=== PATIENT | female | born 1945 | race Caucasian/White ===

== ENCOUNTER → 2018-07-07 12:50 | Outpatient (POV) | payer MEDICARE, SELFPAY | PROVIDERS: Family Provider Family Medicine; PCP Family Medicine | DX: Z00.00 Encounter for general adult medical examination without abnormal findings (principal) ==

== ENCOUNTER → 2018-10-01 14:56 | Outpatient (CLI) | payer MEDICARE, SELFPAY ==
[2018-10-01 15:43] LABS: CKMB Relative Index 2.6 U/L (0-4.0); Creatine Kinase 182 U/L (26-192); Creatine Kinase MB 4.8 ng/ml (0.0-3.6); Troponin I < 0.02 ng/ml (0.00-0.06)
== END ==
PROVIDERS: Visit Provider Family Medicine
DX: R07.9 Chest pain, unspecified (principal)
CPT/HCPCS: 36415; 82550; 82553; 84484; 93005

== ENCOUNTER → 2018-10-08 10:37 | Outpatient (CLI) | payer MEDICARE, SELFPAY ==
--- NOTE | 2018-10-08 10:40 | MR_ITS ---
MR lumbar spine wo con, MR 3-d myelogram/MRCP HISTORY: Low back pain with bilateral leg pain and weakness ITS.REASON: LOW BACK PAIN ORDERING PHYSICIAN: Lalo Coburn MD PATIENT AGE: 73 years Comparison: 01/15/2017 TECHNIQUE: Standard multiplanar multiecho sequences are performed without contrast. 3-D MIP and myelographic images are also rendered and reviewed FINDINGS: There is slight reversal of the lumbar lordosis. The spinal cord ends at the L1 level. There is mild lumbar scoliosis convex left. L1-L2: Unremarkable. L2-L3: Mild degenerative disc disease with type I endplate changes anteriorly. L3-L4: Degenerative disc disease with minimal posterior endplate osteophytes. Mild facet and ligamentum flavum hypertrophy with mild right sided foraminal narrowing. L4-L5: Degenerative disc disease with bulging disc eccentric toward the right with right lateral bulging disc/osteophyte complex. There is moderate right-sided foraminal narrowing. L5-S1: Degenerative disc disease with facet and ligamentum hypertrophy. Left-sided facet hypertrophic changes are present along with a small left foraminal/lateral disc osteophyte complex causing moderate narrowing of the left foramen at L5-S1. No fracture or dislocation. No extruded herniated disc evident. IMPRESSION: 1. Lumbar spondylosis with scoliosis as detailed above. No disc herniation or canal stenosis 2. L3-L4: Degenerative disc disease with minimal posterior endplate osteophytes. Mild facet and ligamentum flavum hypertrophy with mild right sided foraminal narrowing. 3. L4-L5: Degenerative disc disease with bulging disc eccentric toward the right with right lateral bulging disc/osteophyte complex. There is moderate right-sided foraminal narrowing. 4. L5-S1: Degenerative disc disease with facet and ligamentum hypertrophy. Left-sided facet hypertrophic changes are present along with a small left foraminal/lateral disc osteophyte complex causing moderate narrowing of the left foramen at L5-S1.
== END ==
PROVIDERS: PCP Family Medicine; Visit Provider Family Medicine
DX: M54.5 Low back pain (principal); M51.36 Other intervertebral disc degeneration, lumbar region
CPT/HCPCS: 72148; 76376

== ENCOUNTER → 2019-01-12 13:26 | Outpatient (POV) | payer MEDICARE, SELFPAY | DX: Z00.00 Encounter for general adult medical examination without abnormal findings (principal) ==

== ENCOUNTER → 2019-04-11 08:59 | Outpatient (POV) | payer MEDICARE, SELFPAY ==
[2019-04-11 09:17] VITALS: BP 118/62; PULSE 84; RESP 18; O2SAT 99; BMI 17.8
--- NOTE | 2019-04-11 11:05 | HMH.PMCON ---
Assessment and Plan (1) Facet arthropathy, lumbar Current visit: Yes Status: Acute Category: Medical Code(s): M47.816 - Spondylosis without myelopathy or radiculopathy, lumbar region (2) Degenerative disc disease, lumbar Current visit: Yes Status: Acute Category: Medical Code(s): M51.36 - Other intervertebral disc degeneration, lumbar region - Assessment and plan all Dx Assessment and Plan for all problems:: We will schedule the patient for an epidural injection at L4-L5. The patient is not on any anticoagulation therapy. She will continue a home stretching program. We will also start her on diclofenac 75 mg p.o. 1 tablet needed. We will see her back after her procedure and reassess her symptoms at that time. She is been instructed to call the office if she has any concerns prior to her next appointment. Dr. Shultz has reviewed this note and agrees with this plan of care. This note was dictated using voice recognition software and may contain errors or omissions HPI - Data of Consult Patient: new to practice Requesting Physician: Neisha Huff APRN Primary Care Provider: Lalo Coburn MD - Consult Narrative Reason for consult: Low back pain History of present illness: Ms. Sinha is a 73 year old female who presents today for complaints of back pain. The patient denies any radiation of the pain. It is a dull ache, but to be sharper by the end of the day. She says this is been going on for years but the pain is progressively getting worse. She does state that the pain worsens with standing and walking, and is relieved with bending forward and sitting. Patient rates her pain a 6 out of 10 today. She has been referred by Dr. Coburn. She says that she is very cautious in any medications that she takes, and has been concerned about taken naproxen in the past due to being told that it can cause kidney problems. Result, she often tells providers that she has an allergy to naproxen. She denies any actual allergy. She has been exercising and says that she does have some relief with this. CC: Neisha Huff APRN [facility] History I have reviewed the patient's past medical history: Yes Medical History: Reports:: Diabetes Mellitus Type 2 *Have you ever received a pneumonia vaccine?: No *Have you received a flu vaccine this season?: No Other Surgeries: Yes: Cholecystectomy - *Social History Smoking Status: Never smoker Alcohol Intake: never *Occupational Status:: other Housing: house Household Members: other *Travel in the last 8 weeks: None - Psychiatric History Expresses thoughts of harming self/others: None Suicide Plan Description: No Plan Family Hx:: Unable to obtain Review of Systems - Review of Systems ROS General: no recent weight change, no fever, no sleep disturbances Respiratory: no cough, no shortness of air, no recurring pulmonary infections Cardiovascular/Peripheral Vascular: No chest pain, No palpitations, no edema, no shortness of breath. Gastrointestinal: no incontinence, normal bowel movements reported Genitourinary: no incontinence Musculoskeletal: Back pain Psychiatric: normal mood/ affect, Neurological: [denies weakness in extremities], [denies balance issues] Meds Home Medications Medication Instructions Recorded Confirmed Type Levothyroxine Sodium 100 mcg PO DAILY 04/11/19 04/11/19 History [Levothyroxine 100mcg (0.1MG) Tab] Metformin HCl [Fortamet] 500 mg PO BID 04/11/19 04/11/19 History Potassium 99 mg PO DAILY 04/11/19 04/11/19 History Simvastatin 40 mg PO DAILY 04/11/19 04/11/19 History Allergies Allergy/AdvReac Type Severity Reaction Status Date / Time naproxen [NAPROXEN] Allergy Unknown Unverified 10/06/17 14:24 Objective Vital signs: Pulse Resp BP Pulse Ox 84 18 118/62 99 04/11/19 09:17 04/11/19 09:17 04/11/19 09:17 04/11/19 09:17 Narrative: Physical Exam General: Alert and oriented x3, no acute
--- NOTE | 2019-04-11 11:09 | P.CONS_ITS ---
Assessment and Plan (1) Facet arthropathy, lumbar Current visit: Yes Status: Acute Category: Medical Code(s): M47.816 - Spondylosis without myelopathy or radiculopathy, lumbar region (2) Degenerative disc disease, lumbar Current visit: Yes Status: Acute Category: Medical Code(s): M51.36 - Other intervertebral disc degeneration, lumbar region - Assessment and plan all Dx Assessment and Plan for all problems:: We will schedule the patient for an epidural injection at L4-L5. The patient is not on any anticoagulation therapy. She will continue a home stretching program. We will also start her on diclofenac 75 mg p.o. 1 tablet needed. We will see her back after her procedure and reassess her symptoms at that time. She is been instructed to call the office if she has any concerns prior to her next appointment. Dr. Shultz has reviewed this note and agrees with this plan of care. This note was dictated using voice recognition software and may contain errors or omissions HPI - Data of Consult Patient: new to practice Requesting Physician: Neisha Huff APRN Primary Care Provider: Lalo Coburn MD - Consult Narrative Reason for consult: Low back pain History of present illness: Ms. Sinha is a 73 year old female who presents today for complaints of back pain. The patient denies any radiation of the pain. It is a dull ache, but to be sharper by the end of the day. She says this is been going on for years but the pain is progressively getting worse. She does state that the pain worsens with standing and walking, and is relieved with bending forward and sitting. Patient rates her pain a 6 out of 10 today. She has been referred by Dr. Coburn. She says that she is very cautious in any medications that she takes, and has been concerned about taken naproxen in the past due to being told that it can cause kidney problems. Result, she often tells providers that she has an allergy to naproxen. She denies any actual allergy. She has been exercising and says that she does have some relief with this. CC: Neisha Huff APRN [facility] History I have reviewed the patient's past medical history: Yes Medical History: Reports:: Diabetes Mellitus Type 2 *Have you ever received a pneumonia vaccine?: No *Have you received a flu vaccine this season?: No Other Surgeries: Yes: Cholecystectomy - *Social History Smoking Status: Never smoker Alcohol Intake: never *Occupational Status:: other Housing: house Household Members: other *Travel in the last 8 weeks: None - Psychiatric History Expresses thoughts of harming self/others: None Suicide Plan Description: No Plan Family Hx:: Unable to obtain Review of Systems - Review of Systems ROS General: no recent weight change, no fever, no sleep disturbances Respiratory: no cough, no shortness of air, no recurring pulmonary infections Cardiovascular/Peripheral Vascular: No chest pain, No palpitations, no edema, no shortness of breath. Gastrointestinal: no incontinence, normal bowel movements reported Genitourinary: no incontinence Musculoskeletal: Back pain Psychiatric: normal mood/ affect, Neurological: [denies weakness in extremities], [denies balance issues] Meds Home Medications Medication Instructions Recorded Confirmed Type Levothyroxine Sodium 100 mcg PO DAILY 04/11/19 04/11/19 History [Levothyroxine 100mcg (0.1MG) Tab] Metformin HCl [Fortamet] 500 mg PO BID 04/11/19 04/11/19 History Potassium
== END ==
PROVIDERS: PCP Family Medicine; Visit Provider Clinical Nurse Specialist Family Health
DX: M47.816 Spondylosis without myelopathy or radiculopathy, lumbar region (principal); M51.36 Other intervertebral disc degeneration, lumbar region
CPT/HCPCS: 99202

== ENCOUNTER → 2019-05-16 10:47 | Outpatient (POV) | payer MEDICARE, SELFPAY ==
[2019-05-16 10:54] VITALS: BP 123/60; PULSE 77; RESP 18; O2SAT 98; BMI 17.6
--- NOTE | 2019-05-16 13:06 | HMH.PAINSOAP ---
[facility] Pain Management SOAP Note Subjective:: She is a very pleasant 73-year-old white female who presents today for follow-up after lumbar epidural steroid injection. Patient had 3 weeks of complete pain relief. Her pain is starting to begin to come back now. She states that she has some lumbar muscle spasms. Patient has not tried any heat on this she is uninterested in any medications or physical therapy at this time 2. She did complete 6 weeks of physical therapy in which she stated that her pain got worse. Patient has started taking her diclofenac 75 mg 1 p.o. twice daily. She denies having any side effects to it. ROS General: no recent weight change, no fever, no sleep disturbances Respiratory: no cough, no shortness of air, no recurring pulmonary infections Cardiovascular/Peripheral Vascular: No chest pain, No palpitations, no edema, no shortness of breath. Gastrointestinal: no incontinence, normal bowel movements reported Genitourinary: no incontinence Musculoskeletal: Back pain, leg pain Psychiatric: normal mood/ affect Neurological: [denies weakness in extremities], [denies balance issues] Objective:: Physical Exam General: Alert and oriented x3, no acute distress, pleasant and cooperative, [on room air] Lungs: Resps E/U, Symmetrical chest expansion, Eyes: PERRL Musculoskeletal: Flexion and extension of lumbar spine somewhat guarded secondary to pain, deep tendon reflexes normal, strength in upper and lower extremities [5/5], [abnormal gait noted] Neurological: speech clear, art sales consultant equal, no gross sensory deficits Assessment:: Degenerative disc disease lumbar spine with lumbar radiculopathy Plan:: We will schedule repeat L4-L5 lumbar epidural steroid injection for the patient. She is not on any anticoagulation therapy. Patient has not utilize heat or ice for any of her pain symptoms however she is uninterested in any kind of oral medications or physical therapy. I discussed with her utilizing her heating pad 20 minutes a day twice a day for her low back muscle spasms. Follow-up with the patient after her injection reassess her symptoms at that time. Dr. Shultz has reviewed this note and agrees with this plan of care. This note was dictated using voice recognition software and may contain errors or omissions
== END ==
PROVIDERS: PCP Family Medicine; Visit Provider Clinical Nurse Specialist Family Health
DX: M51.16 Intervertebral disc disorders with radiculopathy, lumbar region (principal)
CPT/HCPCS: 99212

== ENCOUNTER → 2019-06-13 10:32 | Outpatient (POV) | payer MEDICARE, SELFPAY ==
[2019-06-13 11:11] VITALS: BP 131/54; PULSE 74; RESP 18; O2SAT 98; BMI 18.1
--- NOTE | 2019-06-13 11:37 | P.CONS_ITS ---
[facility] Pain Management SOAP Note Subjective:: Patient is a pleasant 73-year-old white female who presents today after second epidural steroid injection. Overall she states she is doing well she is also states she is doing well with her anti-inflammatories. Patient would like to have another injection when the weather becomes cooler. She does get about 80% relief of her symptoms. She does rate her pain a 7 out of 10 mostly her arthritic pain today. ROS General: no recent weight change, no fever, no sleep disturbances Respiratory: no cough, no shortness of air, no recurring pulmonary infections Cardiovascular/Peripheral Vascular: No chest pain, No palpitations, no edema, no shortness of breath. Gastrointestinal: no incontinence, normal bowel movements reported Genitourinary: no incontinence Musculoskeletal: Back pain Psychiatric: normal mood/ affect, [denies depression], [denies anxiety] Neurological: [denies weakness in extremities], [denies balance issues] Objective:: Physical Exam General: Alert and oriented x3, no acute distress, pleasant and cooperative, [on room air] Lungs: Resps E/U, Symmetrical chest expansion, Eyes: PERRL Musculoskeletal: Flexion and extension of lumbar spine somewhat guarded secondary to pain, deep tendon reflexes normal, strength in upper and lower extremities [5/5], [abnormal gait noted] Neurological: speech clear, carpet cleaner equal, no gross sensory deficits Assessment:: Degenerative disc disease lumbar spine with lumbar radiculopathy symptoms Plan:: Given the efficacy of the patient previous injections we will schedule a L4-L5 lumbar epidural steroid injection and July for the patient when the weather begins to turn cold. Patient is continuing her home stretching program. She is not on any anticoagulation therapy. I will follow-up with the patient after her injection reassess her symptoms at that time she is been instructed to call the office if she has any issues prior to her next appointment. Dr. Shultz has reviewed this note and agrees with this plan of care. This note was dictated using voice recognition software and may contain errors or omissions Pain Management Hx Components *Have you ever received a pneumonia vaccine?: Yes *Have you received a flu vaccine this season?: Yes - *Social History *Occupational Status:: other *Travel in the last 8 weeks: None
== END ==
PROVIDERS: PCP Family Medicine; Visit Provider Clinical Nurse Specialist Family Health
DX: M51.16 Intervertebral disc disorders with radiculopathy, lumbar region (principal)
CPT/HCPCS: 99212

== ENCOUNTER → 2019-07-13 11:30 | Outpatient (POV) | payer MEDICARE, SELFPAY | DX: Z00.00 Encounter for general adult medical examination without abnormal findings (principal) ==

== ENCOUNTER → 2019-07-18 13:22 | Outpatient (POV) | payer MEDICARE, SELFPAY | PROVIDERS: PCP Family Medicine; Visit Provider Nurse Practitioner Family | DX: Z00.00 Encounter for general adult medical examination without abnormal findings (principal) ==

== ENCOUNTER → 2020-04-25 12:26 | Outpatient (POV) | payer MEDICARE, SELFPAY | DX: Z00.00 Encounter for general adult medical examination without abnormal findings (principal) ==

== ENCOUNTER → 2020-05-21 07:55 | Outpatient (CLI) | payer MEDICARE, SELFPAY ==
[2020-05-21 09:19] LABS: Coronavirus 19 IgM Antibody Negative (Negative)
[2020-05-21 09:20] LABS: Coronavirus 19 IgG Antibody Positive (Negative)
== END ==
PROVIDERS: Visit Provider Surgery
DX: Z01.818 Encounter for other preprocedural examination (principal); Z12.11 Encounter for screening for malignant neoplasm of colon
CPT/HCPCS: 36415; 86328

== ENCOUNTER 2020-05-22 07:17 | Day surgery (SDC) | payer MEDICARE, SELFPAY ==
[2020-05-17 13:42] VITALS: BMI 16.9
[2020-05-22] VITALS (7 sets, daily range): BP systolic 83–150; BP diastolic 45–65; PULSE 59–71; RESP 16–18; TEMP 36.3–36.6; O2SAT 98–100
[2020-05-22 07:54] LABS: POC Glucose,Bedside 131 (70-110)
--- NOTE | 2020-05-22 08:34 | P.PN_ITS ---
[facility] Anesthesia Checklist - Patient Identification Patient Identification: Arm Band - Structural Data Admitted From: Home Planned Operative Procedure/s: colonoscopy Consent for Planned Operative Procedure(s) Verified: Yes Verified Documents: Surgical Consent, History and Physical - NPO Status Verified Time NPO: 00:00 - Additional verifications Anesthesia Reactions: No Hx Blood Transfusions: No Blood Transfusion Reaction: No - Airway Assessment C-Spine Mobility Assessed: Yes (mp2) TMJ Mobility Assessed: Yes Dentition: Poor Dentition - Neurological Assessment Level of Consciousness: Awake, Alert - Anesthesia Plan Anesthesia Risk discussed: Yes Anesthesia Plan: Verified ASA Class: III Anesthesia Type: MAC [facility] History I have reviewed the patient's past medical history: Yes Medical History: Reports:: Diabetes Mellitus Type 2, Gastroesophageal Reflux Disease(GERD), Hyperlipidemia Denies:: Cancer, Diabetes Mellitus Type 1, Internal Pacemaker, MRSA, Seizures *Have you ever received a pneumonia vaccine?: Yes *Have you received a flu vaccine this season?: Yes Other Medical History: Denies: Blood Transfusion Reaction Anesthesia experience/problems:: nac Other Surgeries: Yes: Cholecystectomy, Colonoscopy, EGD, Other. No: Pacemaker Amputation: No Fractures: No - *Social History Last grade of school completed: High school graduate Smoking Status: Never smoker Alcohol Intake: never Substance Use Type: denies use *Occupational Status:: retired Housing: house Household Members: family *Travel in the last 8 weeks: None Family Hx:: Coronary Artery Disease, Diabetes
--- NOTE | 2020-05-22 09:26 | HMH.SCOPE ---
- Procedure: Date: 05/22/20 Procedure Performed:: Total colonoscopy with polypectomy by biopsy forceps Indications:: Patient presents for follow-up colonoscopy. She is a 74-year-old white female who is well-known to me. I had previously seen her for some GI complaints characterized mostly by postprandial bloating and abdominal distention. Discussion was held about possible upper endoscopy as well as gastric emptying scan potential. Patient declined both of those investigations at that time. She was referred by Dr. Coburn for iron deficiency anemia and Hemoccult positive stool. Patient has refused gastroenterology referral in the past. She underwent upper endoscopy and colonoscopy as a work-up in December of this year. She had a rather poor colonic preparation, particularly the right colon, and I had advocated a follow-up colonoscopy in several months for complete evaluation. She did have a pedunculated polyp within the rectosigmoid which returned as tubular adenoma. Patient does state that she is planning cataract surgery as her vision has become quite symptomatic. Of note, the patient states that her sister is due for an upper endoscopy due to prior history of esophageal carcinoma. She wishes to perform this in June. Performing Provider:: Geronimo Rodriguez MD Referring Provider:: Lalo Coburn MD Sedation:: Propofol Procedure:: Patient was taken to endoscopy procedure room. She was positioned in a lateral decubitus position. Adequate intravenous sedation was achieved with titration of propofol. Variable stiffness Olympus colonoscope was inserted via the anus. With some difficulty due to profoundly floppy and atonic colon the colonoscope ultimately was advanced to the cecum. Colonic preparation was fair but adequate visualization was achieved with thorough irrigation and suctioning. Ileocecal valve and appendiceal orifice were clearly identified. In the periappendiceal location there is a small nodule which was removed with cold biopsy forceps and sent as polyp . This appeared to be likely a lymphoid nodule. Colonoscope withdrawn through the colon with careful surveillance. There were no other polyps or masses noted. Retroflexion within the rectum revealed internal hemorrhoids. Colonoscope was withdrawn. Findings:: Possible lymphoid nodule, biopsy, cecum Floppy colon Rare diverticuli Internal hemorrhoids Recommendations:: Repeat colonoscopy 5 years due to pedunculated polyp on colonoscopy done in December of this year. Source for iron deficiency anemia may be dietary Complications:: None immediately apparent Estimated blood obtained (mL): 2
== END 2020-05-22 10:09 | disposition home or self-care (01) ==
LOC: OUTP 07:18
PROVIDERS: PCP Family Medicine; Visit Provider Surgery
PROC: 0DJD8ZZ Inspection of Lower Intestinal Tract, Via Natural or Artificial Opening Endoscopic (ICD-10-PCS; CPT 45380; principal; 2020-05-22 08:30)
DX: Z12.11 Encounter for screening for malignant neoplasm of colon (principal); K63.5 Polyp of colon; K56.2 Volvulus; K57.30 Diverticulosis of large intestine without perforation or abscess without bleeding; K64.9 Unspecified hemorrhoids; Z80.0 Family history of malignant neoplasm of digestive organs; D50.9 Iron deficiency anemia, unspecified; E11.9 Type 2 diabetes mellitus without complications; K21.9 Gastro-esophageal reflux disease without esophagitis; E78.5 Hyperlipidemia, unspecified; Z90.49 Acquired absence of other specified parts of digestive tract; Z82.49 Family history of ischemic heart disease and other diseases of the circulatory system
CPT/HCPCS: 45380; 82962; 88305; J2704

== ENCOUNTER → 2020-06-11 08:25 | Outpatient (CLI) | payer MEDICARE, SELFPAY ==
--- NOTE | 2020-06-11 08:25 | FL_ITS ---
PROCEDURE: FL SMALL BOWEL FOLLOW THROUGH CLINICAL INDICATION: Anemia, positive occult blood COMPARISON: No exams were available for comparison FINDINGS: Fluoroscopy time: 32 seconds Small bowel has an unremarkable appearance. No mass obstructing lesion or mucosal abnormality is evident. Terminal ileum has an unremarkable appearance. Forge Utility Worker exam shows moderate levoscoliosis. Nonspecific pelvic calcifications are present. IMPRESSION: Unremarkable small bowel follow-through Dictated by: Elliott Quigley MD 06/11/2020 13:27 Elliott Quigley MD in [facility] 06/11/2020 13:27
== END ==
PROVIDERS: PCP Family Medicine; Visit Provider Surgery
DX: D64.9 Anemia, unspecified (principal)
CPT/HCPCS: 74250

== ENCOUNTER → 2020-08-13 08:45 | Outpatient (CLI) | payer MEDICARE, SELFPAY ==
[2020-08-13 11:54] LABS: Coronavirus 19 IgG Antibody Negative (Negative); Coronavirus 19 IgM Antibody Negative (Negative)
== END ==
PROVIDERS: Visit Provider Ophthalmology
DX: Z01.818 Encounter for other preprocedural examination (principal); H26.9 Unspecified cataract
CPT/HCPCS: 36415; 86328

== ENCOUNTER 2020-08-14 08:08 | Day surgery (SDC) | payer MEDICARE, SELFPAY ==
[2020-08-07 13:53] VITALS: BMI 17.3
--- NOTE | 2020-08-07 13:53 | SUR.PREOP ---
Instructed pt to go to Outpt lab on Thursday for COVID screening btwn 8-12
[2020-08-14 10:18] VITALS: BP 141/73; PULSE 75; RESP 18; TEMP 36.2; O2SAT 95
[2020-08-14 10:38] LABS: POC Glucose,Bedside 119 (70-110)
[2020-08-14 11:25] VITALS: BP 124/56; PULSE 71; RESP 18; O2SAT 100
[2020-08-14 11:30] VITALS: BP 126/58; PULSE 69; RESP 18; O2SAT 100
[2020-08-14 11:35] VITALS: BP 120/52; PULSE 67; RESP 16; O2SAT 100
[2020-08-14 11:40] VITALS: BP 115/58; PULSE 67; RESP 16; O2SAT 100
[2020-08-14 11:44] VITALS: BP 129/66; PULSE 71; RESP 18; TEMP 36.6; O2SAT 100
== END 2020-08-14 11:54 | disposition home or self-care (01) ==
LOC: OR 08:09
PROVIDERS: PCP Family Medicine; Visit Provider Ophthalmology
DX: H25.813 Combined forms of age-related cataract, bilateral (principal); H35.3132 Nonexudative age-related macular degeneration, bilateral, intermediate dry stage; E11.9 Type 2 diabetes mellitus without complications; Z79.84 Long term (current) use of oral hypoglycemic drugs; Z79.899 Other long term (current) drug therapy; Z80.9 Family history of malignant neoplasm, unspecified; M19.90 Unspecified osteoarthritis, unspecified site; K21.9 Gastro-esophageal reflux disease without esophagitis; E03.9 Hypothyroidism, unspecified; Z90.49 Acquired absence of other specified parts of digestive tract
CPT/HCPCS: 66984; 82962; V2632

== ENCOUNTER → 2020-08-27 10:54 | Outpatient (CLI) | payer MEDICARE, SELFPAY ==
[2020-08-27 13:53] LABS: Coronavirus 19 IgG Antibody Negative (Negative); Coronavirus 19 IgM Antibody Negative (Negative)
== END ==
PROVIDERS: Visit Provider Ophthalmology
DX: Z01.818 Encounter for other preprocedural examination (principal); Z98.41 Cataract extraction status, right eye
CPT/HCPCS: 36415; 86328

== ENCOUNTER 2020-08-28 08:40 | Day surgery (SDC) | payer MEDICARE, SELFPAY ==
[2020-08-21 15:13] VITALS: BMI 19.0
[2020-08-28 10:02] VITALS: BP 130/54; PULSE 80; RESP 16; TEMP 36.7; O2SAT 99
[2020-08-28 10:23] LABS: POC Glucose,Bedside 128 (70-110)
[2020-08-28 11:20] VITALS: BP 133/60; PULSE 69; RESP 16; O2SAT 100
[2020-08-28 11:25] VITALS: BP 118/58; PULSE 71; RESP 16; O2SAT 100
[2020-08-28 11:30] VITALS: BP 123/57; PULSE 68; RESP 16; O2SAT 100
[2020-08-28 11:35] VITALS: BP 136/48; PULSE 80; RESP 16; TEMP 36.2; O2SAT 99
== END 2020-08-28 11:50 | disposition home or self-care (01) ==
LOC: OR 08:41
PROVIDERS: PCP Family Medicine; Visit Provider Ophthalmology
DX: H25.813 Combined forms of age-related cataract, bilateral (principal); H35.3132 Nonexudative age-related macular degeneration, bilateral, intermediate dry stage; E11.9 Type 2 diabetes mellitus without complications; K21.9 Gastro-esophageal reflux disease without esophagitis; E03.9 Hypothyroidism, unspecified
CPT/HCPCS: 66984; 82962; V2632

== ENCOUNTER → 2021-01-30 11:19 | Outpatient (CLI) | payer MEDICARE, SELFPAY ==
[2021-01-30 12:49] LABS: Coronavirus 19 IgG Antibody Negative (Negative); Coronavirus 19 IgM Antibody Negative (Negative)
== END ==
PROVIDERS: Visit Provider Surgery
DX: Z01.812 Encounter for preprocedural laboratory examination (principal); Z11.52 Encounter for screening for COVID-19
CPT/HCPCS: 36415; 86328

== ENCOUNTER 2021-02-01 06:07 | Day surgery (SDC) | payer MEDICARE, SELFPAY ==
[2021-01-29 13:07] VITALS: BMI 16.9
[2021-02-01] VITALS (10 sets, daily range): BP systolic 112–139; BP diastolic 52–75; PULSE 70–79; RESP 12–20; TEMP 36.4–36.8; O2SAT 94–99
--- NOTE | 2021-02-01 06:52 | HMH.ANESCL ---
[facility] Anesthesia Checklist - Structural Data Admitted From: Home Planned Operative Procedure/s: excision neoplasm r flank Consent for Planned Operative Procedure(s) Verified: Yes - Additional verifications Anesthesia Reactions: No Hx Blood Transfusions: No Blood Transfusion Reaction: No - Airway Assessment C-Spine Mobility Assessed: Yes TMJ Mobility Assessed: Yes Dentition: Good Dentition - Neurological Assessment Level of Consciousness: Awake, Alert, Appropriate - Anesthesia Plan Anesthesia Risk discussed: Yes Anesthesia Plan: Verified ASA Class: II Anesthesia Type: General [facility] History I have reviewed the patient's past medical history: Yes Medical History: Reports:: Diabetes Mellitus Type 2, Gastroesophageal Reflux Disease(GERD), Hyperlipidemia Denies:: Cancer, Diabetes Mellitus Type 1, Internal Pacemaker, MRSA, Seizures *Have you ever received a pneumonia vaccine?: Yes *Have you received a flu vaccine this season?: Yes Other Medical History: Reports: Arthritis. Denies: Blood Transfusion Reaction Anesthesia experience/problems:: none Laterality Cases: Bilateral: Cataract Other Surgeries: Yes: Cholecystectomy, Colonoscopy, EGD, Other. No: Pacemaker Amputation: No Fractures: No - *Social History Last grade of school completed: High school graduate Smoking Status: Never smoker Alcohol Intake: never Substance Use Type: denies use *Occupational Status:: retired Housing: apartment Household Members: none *Travel in the last 8 weeks: None Family Hx:: Coronary Artery Disease, Diabetes
--- NOTE | 2021-02-01 08:09 | HMH.OPNOTE ---
Date of procedure: 02/01/21 Pre-op Diagnosis:: Infected sebaceous cyst right posterior lateral back Post-op Diagnosis:: Same Procedure performed:: Excision of sebaceous cyst (excisional length approximately 5 cm) with intermediate complexity partial closure. Surgeon:: Geronimo Rodriguez MD PLANT CULTURE MANAGER:: Luis Pagan Anesthesia: LMA Estimated blood loss (mL): 10 Clinical Note:: Patient is a 75-year-old female. I had seen her in the office over a week ago at which time she had what appeared to be an inflamed sebaceous cyst on the right posterior lateral back area. She was started on antibiotics. However this failed outpatient management and she developed some drainage consistent with abscess sebaceous cyst. Plan was made for excision of the underlying cyst with debridement and partial closure. Operative findings:: Consistent with ruptured inflamed abscess sebaceous cyst Operative note:: Patient was taken to the operating room. General anesthesia was induced via LMA. She was positioned in lateral position. The area was prepped and draped. Lesion was marked with a skin marker for planned elliptical excision of the somewhat ulcerated denuded skin where there was drainage. Incision was performed after injection of local anesthetic. Dissection was carried down to the cyst capsule. The overlying inflamed denuded skin was excised with the underlying cyst capsule using Metzenbaum dissection. It was sent off as specimen. Wound was irrigated. Hemostasis was achieved with electrocautery. Additional local anesthetic was infiltrated. Incision was closed with interrupted 3-0 nylon vertical mattress sutures leaving small central portion open which was packed with 1/4 inch plain packing gauze. Clean dry sterile dressing was applied. Condition: stable Disposition: PACU Specimens:: Sebaceous cyst Complications:: None immediately apparent
--- NOTE | 2021-02-01 08:11 | HMH.ANESI ---
[facility] Anesthesia Record Part I Intake, IV Amount: 500 Estimated blood loss (mL): 0 Urine output (mL): 0 Blood Pressure: 124/68 SaO2: 97 Pulse Rate: 70 Respiratory Rate: 12 Temperature: 98.2 F Patient is:: Awake, Stable Stable to PACU at:: 08:05
[2021-02-01 08:38] LABS: POC Glucose,Bedside 109 (70-110)
--- NOTE | 2021-02-01 13:37 | HMH.ANESII ---
[facility] Anesthesia Record Part II Discharge Time: 08:35 Destination: Surgical Day Care (OP Surgery) PACU nurse assessment reviewed?: Yes Patient Condition:: Good Anesthesia Complications:: None Swallowing reflex intact?: Yes Cyanosis?: No Blood Pressure: 125/63 Pulse Rate: 74 Temperature: 98 F Mental Status: Alert & Oriented Pain level:: 0 Nausea and/or vomitting:: None Intake, IV Amount: 0
[2021-02-01 15:54] LABS: POC Glucose,Bedside 120 (70-110)
== END 2021-02-01 09:06 | disposition home or self-care (01) ==
LOC: OR 06:08
PROVIDERS: PCP Family Medicine; Visit Provider Surgery
PROC: (CPT 21931; principal; 2021-02-01 07:30)
DX: L72.3 Sebaceous cyst (principal); E11.9 Type 2 diabetes mellitus without complications; K21.9 Gastro-esophageal reflux disease without esophagitis; E78.5 Hyperlipidemia, unspecified; Z90.49 Acquired absence of other specified parts of digestive tract; Z83.3 Family history of diabetes mellitus; Z82.49 Family history of ischemic heart disease and other diseases of the circulatory system; Z79.899 Other long term (current) drug therapy; Z79.84 Long term (current) use of oral hypoglycemic drugs
CPT/HCPCS: 21931; 82962; 88304; 96374; J2405

== ENCOUNTER 2021-02-02 08:43 | Outpatient (CLI) | payer MEDICARE, SELFPAY ==
[2021-02-02 08:50] VITALS: BP 133/70; PULSE 72; RESP 18; O2SAT 97
--- NOTE | 2021-02-02 09:30 | PC.NURSE ---
Incision is well approximated, 6 stitches with a small opening in between them, (3 stitches, opening, 3 stitches). Small strip of 1/4in nugauze removed from opening and replaced with the same. Small amount of sanguineous drainage. Covered with dry 4x4's and medipore tape. Pt tolerated well.
== END 2021-02-02 09:30 | disposition home or self-care (01) ==
LOC: INF 08:43
PROVIDERS: PCP Family Medicine; Visit Provider Surgery
DX: L72.3 Sebaceous cyst (principal); Z48.01 Encounter for change or removal of surgical wound dressing
CPT/HCPCS: G0463

== ENCOUNTER 2021-02-03 08:52 | Outpatient (CLI) | payer MEDICARE, SELFPAY ==
[2021-02-03 09:03] VITALS: BP 115/71; PULSE 67; RESP 19; TEMP 36.8; O2SAT 95
[2021-02-03 10:07] VITALS: BP 115/71; PULSE 75; RESP 19; TEMP 36.8; O2SAT 95
== END 2021-02-03 09:20 | disposition home or self-care (01) ==
LOC: INF 08:53
PROVIDERS: PCP Family Medicine; Visit Provider Surgery
DX: L72.3 Sebaceous cyst (principal); Z48.01 Encounter for change or removal of surgical wound dressing
CPT/HCPCS: G0463

== ENCOUNTER 2021-02-04 08:29 | Outpatient (CLI) | payer MEDICARE, SELFPAY ==
--- NOTE | 2021-02-04 14:08 | PC.NURSE ---
R back wound cleansed with NS/ packed with 1/4 nugauze, covered with dry 4x4's, secured with medipore tape. sutures to both side of area are intact with no problems noted/ packing to open area center of wound. Patient tolerated very well.
== END 2021-02-04 08:50 | disposition home or self-care (01) ==
LOC: INF 08:29
PROVIDERS: Visit Provider Surgery
DX: L72.3 Sebaceous cyst (principal); Z48.01 Encounter for change or removal of surgical wound dressing
CPT/HCPCS: G0463

== ENCOUNTER 2021-02-05 12:02 | Outpatient (CLI) | payer MEDICARE, SELFPAY | END 2021-02-05 12:25 | disposition home or self-care (01) | LOC: INF 12:02 | PROVIDERS: Visit Provider Surgery | DX: L72.3 Sebaceous cyst (principal); Z48.01 Encounter for change or removal of surgical wound dressing | CPT/HCPCS: G0463 ==

== ENCOUNTER 2021-02-06 10:08 | Outpatient (CLI) | payer MEDICARE, SELFPAY | END 2021-02-06 10:20 | disposition home or self-care (01) | LOC: INF 10:08 | PROVIDERS: Visit Provider Surgery | DX: L72.3 Sebaceous cyst (principal); Z48.01 Encounter for change or removal of surgical wound dressing | CPT/HCPCS: G0463 ==

== ENCOUNTER 2021-02-07 08:48 | Outpatient (CLI) | payer MEDICARE, SELFPAY | END 2021-02-07 09:00 | disposition home or self-care (01) | LOC: INF 08:48 | PROVIDERS: Visit Provider Surgery | DX: L72.3 Sebaceous cyst (principal); Z48.01 Encounter for change or removal of surgical wound dressing | CPT/HCPCS: G0463 ==

== ENCOUNTER 2021-02-08 08:54 | Outpatient (CLI) | payer MEDICARE, SELFPAY | END 2021-02-08 09:10 | disposition home or self-care (01) | LOC: INF 08:54 | PROVIDERS: Visit Provider Surgery | DX: L72.3 Sebaceous cyst (principal); Z48.01 Encounter for change or removal of surgical wound dressing | CPT/HCPCS: G0463 ==

== ENCOUNTER 2021-02-09 09:02 | Outpatient (CLI) | payer MEDICARE, SELFPAY ==
--- NOTE | 2021-02-09 16:32 | PC.NURSE ---
RT lower back incision dressing removed and replaced. Wound is packed with Nu-Gauze and covered with 4X4's/tape.
== END 2021-02-09 10:15 | disposition home or self-care (01) ==
LOC: INF 09:03
PROVIDERS: PCP Family Medicine; Visit Provider Surgery
DX: L72.3 Sebaceous cyst (principal); Z48.01 Encounter for change or removal of surgical wound dressing
CPT/HCPCS: G0463

== ENCOUNTER 2021-02-10 08:55 | Outpatient (CLI) | payer MEDICARE, SELFPAY ==
--- NOTE | 2021-02-10 09:50 | PC.WOUNDNOTE ---
Dressing changed at this time using aseptic technique. Wound located on lower R back. Sutures intact, packing removed, and wound flushed with 2 cc of sterile water. RN removed gloves and hand hygiene and sterile gloves applied. wound packed with sterile CURAD idoform. sterile 4x4's placed over incision and taped with medipore soft cloth tape. Patient tolerated well.
--- NOTE | 2021-02-10 11:52 | PC.NURSE ---
Dressing change completed by Osbaldo Alvarado RN
== END 2021-02-10 09:40 | disposition home or self-care (01) ==
LOC: INF 08:55
PROVIDERS: PCP Family Medicine; Visit Provider Surgery
DX: L72.3 Sebaceous cyst (principal); Z48.01 Encounter for change or removal of surgical wound dressing
CPT/HCPCS: G0463

== ENCOUNTER 2021-02-12 08:10 | Outpatient (CLI) | payer MEDICARE, SELFPAY | END 2021-02-12 08:20 | disposition home or self-care (01) | LOC: INF 08:10 | PROVIDERS: PCP Family Medicine; Visit Provider Surgery | DX: L72.3 Sebaceous cyst (principal); Z48.01 Encounter for change or removal of surgical wound dressing | CPT/HCPCS: G0463 ==

== ENCOUNTER 2021-02-13 10:57 | Outpatient (CLI) | payer MEDICARE, SELFPAY ==
[2021-02-13 11:07] VITALS: BP 124/60; PULSE 79; RESP 16; TEMP 36.4; O2SAT 98
== END 2021-02-13 11:15 | disposition home or self-care (01) ==
LOC: INF 11:18
PROVIDERS: Visit Provider Surgery
DX: L72.3 Sebaceous cyst (principal); Z48.01 Encounter for change or removal of surgical wound dressing
CPT/HCPCS: G0463

== ENCOUNTER 2021-02-14 08:34 | Outpatient (CLI) | payer MEDICARE, SELFPAY | END 2021-02-14 08:45 | disposition home or self-care (01) | LOC: INF 08:34 | PROVIDERS: Visit Provider Surgery | DX: L72.3 Sebaceous cyst (principal); Z48.01 Encounter for change or removal of surgical wound dressing | CPT/HCPCS: G0463 ==

== ENCOUNTER 2021-02-15 10:50 | Outpatient (CLI) | payer MEDICARE, SELFPAY | END 2021-02-15 11:06 | disposition home or self-care (01) | LOC: INF 11:02 | PROVIDERS: Visit Provider Surgery | DX: L72.3 Sebaceous cyst (principal); Z48.01 Encounter for change or removal of surgical wound dressing | CPT/HCPCS: G0463 ==

== ENCOUNTER 2021-02-16 08:17 | Outpatient (CLI) | payer MEDICARE, SELFPAY ==
[2021-02-16 08:30] VITALS: BP 123/48; PULSE 78
== END 2021-02-16 08:50 | disposition home or self-care (01) ==
LOC: INF 08:20
PROVIDERS: PCP Family Medicine; Visit Provider Surgery
DX: L72.3 Sebaceous cyst (principal); Z48.01 Encounter for change or removal of surgical wound dressing
CPT/HCPCS: G0463

== ENCOUNTER → 2021-02-17 08:19 | Outpatient (CLI) | payer MEDICARE, SELFPAY | PROVIDERS: PCP Family Medicine; Visit Provider Surgery | DX: L72.3 Sebaceous cyst (principal); Z48.01 Encounter for change or removal of surgical wound dressing | CPT/HCPCS: G0463 ==

== ENCOUNTER 2021-02-18 08:11 | Outpatient (CLI) | payer MEDICARE, SELFPAY | END 2021-02-18 08:20 | disposition home or self-care (01) | LOC: INF 08:11 | PROVIDERS: Visit Provider Surgery | DX: L72.3 Sebaceous cyst (principal); Z48.01 Encounter for change or removal of surgical wound dressing | CPT/HCPCS: G0463 ==

== ENCOUNTER 2021-02-19 12:06 | Outpatient (CLI) | payer MEDICARE, SELFPAY | END 2021-02-19 12:15 | disposition home or self-care (01) | LOC: INF 12:06 | PROVIDERS: Visit Provider Surgery | DX: L72.3 Sebaceous cyst (principal); Z48.01 Encounter for change or removal of surgical wound dressing | CPT/HCPCS: G0463 ==

== ENCOUNTER 2021-02-20 10:28 | Outpatient (CLI) | payer MEDICARE, SELFPAY | END 2021-02-20 10:45 | disposition home or self-care (01) | LOC: INF 10:28 | PROVIDERS: Visit Provider Surgery | DX: L72.3 Sebaceous cyst (principal); Z48.01 Encounter for change or removal of surgical wound dressing | CPT/HCPCS: G0463 ==

== ENCOUNTER 2021-02-21 08:13 | Outpatient (CLI) | payer MEDICARE, SELFPAY ==
--- NOTE | 2021-02-21 09:28 | PC.NURSE ---
steri strips intact to left and right of center wound area, dressing changed per order/see wound assessment intervention.
== END 2021-02-21 08:40 | disposition home or self-care (01) ==
LOC: INF 08:13
PROVIDERS: Visit Provider Surgery
DX: L72.3 Sebaceous cyst (principal); Z48.01 Encounter for change or removal of surgical wound dressing
CPT/HCPCS: G0463

== ENCOUNTER → 2021-11-29 15:14 | Outpatient (CLI) | payer MEDICARE, SELFPAY | PROVIDERS: PCP Family Medicine; Visit Provider Nurse Practitioner | DX: U07.1 COVID-19 (principal) | CPT/HCPCS: C9803; U0003; U0005 ==

== ENCOUNTER → 2022-04-26 08:36 | Outpatient (CLI) | payer MEDICARE, SELFPAY | PROVIDERS: PCP Family Medicine; Visit Provider Ophthalmology | DX: Z01.812 Encounter for preprocedural laboratory examination (principal); Z20.822 Contact with and (suspected) exposure to COVID-19 | CPT/HCPCS: C9803; U0003; U0005 ==

== ENCOUNTER 2022-04-29 07:52 | Day surgery (SDC) | payer MEDICARE, SELFPAY ==
[2022-04-29 09:43] VITALS: BP 119/52; PULSE 76; RESP 20; TEMP 36.6; O2SAT 98; BMI 16.9
[2022-04-29 10:14] VITALS: BP 119/66; PULSE 76; RESP 20; TEMP 36.6; O2SAT 98
== END 2022-04-29 10:15 | disposition home or self-care (01) ==
LOC: OUTP 07:53
PROVIDERS: PCP Family Medicine; Visit Provider Ophthalmology
PROC: (CPT 66821; principal; 2022-04-29 09:00)
DX: Z48.810 Encounter for surgical aftercare following surgery on the sense organs (principal); H26.40 Unspecified secondary cataract; K21.9 Gastro-esophageal reflux disease without esophagitis; M19.90 Unspecified osteoarthritis, unspecified site; E11.9 Type 2 diabetes mellitus without complications; E03.9 Hypothyroidism, unspecified
CPT/HCPCS: 66821

== ENCOUNTER → 2022-06-17 13:40 | Outpatient (POV) | payer MEDICARE, SELFPAY | PROVIDERS: Visit Provider Dermatology | DX: Z00.00 Encounter for general adult medical examination without abnormal findings (principal) ==

== ENCOUNTER → 2022-07-08 13:42 | Outpatient (POV) | payer MEDICARE, SELFPAY | PROVIDERS: Visit Provider Dermatology | DX: Z00.00 Encounter for general adult medical examination without abnormal findings (principal) ==

== ENCOUNTER 2022-12-13 08:58 | Emergency (ER) | payer MEDICARE, SELFPAY ==
[2022-12-13 08:59] VITALS: BP 143/61; PULSE 76; RESP 17; TEMP 36.7; O2SAT 98; BMI 16.8
--- NOTE | 2022-12-13 09:11 | PC.NURSE ---
DR POLANCO AT BEDSIDE
--- NOTE | 2022-12-13 09:21 | XR_ITS ---
PROCEDURE INFORMATION: Exam: XR Right Shoulder Exam date and time: 12/13/2022 10:27 AM Age: 77 years old Clinical indication: Pain; Shoulder; Right; Additional info: Atraumatic R shoulder pain with abduction TECHNIQUE: Imaging protocol: Radiologic exam of the right shoulder. Views: 2 or more views. COMPARISON: No relevant prior studies available. FINDINGS: Bones/joints: Normal. Soft tissues: Normal. IMPRESSION: No acute findings.
[2022-12-13 09:30] VITALS: BP 130/68; PULSE 82; O2SAT 98
--- NOTE | 2022-12-13 09:30 | HMH.EDGENADL ---
Discharge Plan Disposition Patient Disposition: Home, Self-Care Condition: Good Prescriptions Prescriptions: New diclofenac sodium [Arthritis Pain (diclofenac)] 1 % gel 2 g topical QID Qty: 100 2RF Rx Instructions: apply to single elbow, wrist or hand; for hand includes palm/fingers/back of hand No Action omeprazole 40 mg capsule,delayed release(DR/EC) 40 mg PO DAILY ferrous sulfate 27 mg iron tablet 27 mg PO TID simvastatin 40 MG tablet 40 mg PO DAILY levothyroxine 100 MCG tablet 100 mcg PO DAILY potassium 99 MG tablet 99 mg PO DAILY metformin 500 MG tablet extended release 24hr 500 mg PO BID calcium carbonate-vitamin D3 500 MG tablet 500 mg PO DAILY eiqrndvt-jhz-iwlz-FA-lutein 1 EACH tablet 1 each PO DAILY Referrals Follow up/Referrals: Lalo Coburn MD [Primary Care Provider] - See instructions Anel Lantigua MD [Referring] - See instructions (Needs physical therapy for right biceps tendinitis and partial tear of long head of biceps tendon) Clinical Impressions Clinical Impression: Biceps tendinitis of right shoulder Discharge ED Provider: Yoel Regalado General Adult HPI General Chief complaint: Extremity Problem,Nontraumatic Stated complaint: right shoulder and arm pain, no accident Time Seen by Provider: 12/13/22 09:09 Mode of Arrival: Wheelchair Source of Information: Patient and Relative Limitations: No Limitations Description of Symptoms (Recalled from ER Triage Doc. by RN): RIGHT SHOULDER AND ARM PAIN WITHOUT INJURY FOR A FEW DAYS History of Present Illness HPI narrative: This is a 77-year-old female with history of type 2 diabetes presenting with right shoulder pain. Patient states she has had right shoulder pain on and off for months, but got acutely worse over the past 4 to 5 days. No inciting injury. She does not member what she was doing when it started. Since that time, it has started in the anterior aspect of her right shoulder and moved distally toward her elbow. Made worse with shoulder abduction as well as elbow flexion. She tried Tylenol with mild relief, but still has 10 out of 10 pain and she is worried she may have a fracture. Range of motion limited secondary to pain. Denies any trauma, bruising, previous injuries to the shoulder, numbness/weakness/tingling in the arm, elbow, or hand, neck or back pain, or any other concerns. Related Data Home Medications Medication Instructions Recorded Confirmed levothyroxine 100 mcg tablet 100 mcg PO DAILY THYROID 04/11/19 10/22/22 metformin 500 mg tablet,extended 500 mg PO BID Diabetes 04/11/19 10/22/22 release 24hr potassium 99 mg tablet 99 mg PO DAILY Supplement 04/11/19 10/22/22 simvastatin 40 mg tablet 40 mg PO DAILY Cholesterol 04/11/19 10/22/22 omeprazole 40 mg capsule,delayed 40 mg PO DAILY Supplement 07/28/19 10/22/22 release ferrous sulfate 27 mg iron tablet 27 mg PO TID Supplement 04/26/20 10/22/22 calcium carbonate 500 mg-vitamin 500 mg PO DAILY Supplement 05/17/20 10/22/22 D3 5 mcg (200 unit) tablet multivit with 1 each PO DAILY Supplement 08/07/20 10/22/22 iyhdwpur-vfwi-TD-lutein 8 mg iron-400 mcg-300 mcg tablet Previous Rx's Medication Instructions Recorded diclofenac sodium 1 % topical gel 2 g topical QID #100 grams 12/13/22 (Arthritis Pain (diclofenac)) Allergies Allergy/AdvReac Type Severity Reaction Status Date / Time No Known Allergies Allergy Verified 10/22/22 09:24 [facility] Disclaimer: The information contained in this section may have been updated after the patient was seen, as this information can be updated by other users. Social History Smoking Status: Never smoker second hand exposure: No alcohol intake: never substance use type: denies use current occupational status: retired Travel in the last 8 weeks: None household members: family housin
--- NOTE | 2022-12-13 09:35 | PC.NURSE ---
Rounded on patient; patient waiting for radiology exam. Sister at BS. call light within reach, no other needs at this time
[2022-12-13 10:00] VITALS: BP 112/61; PULSE 69; RESP 15; O2SAT 97
--- NOTE | 2022-12-13 10:26 | PC.NURSE ---
PT UPDATED ON POC, NO NEEDS AT THIS TIME
--- NOTE | 2022-12-13 10:34 | PC.NURSE ---
PT TO XR AT THIS TIME
--- NOTE | 2022-12-13 10:42 | PC.NURSE ---
PT RETURNED FROM XR
--- NOTE | 2022-12-13 10:43 | PC.NURSE ---
pt return from xray
[2022-12-13 11:00] VITALS: BP 130/67; PULSE 69; O2SAT 100
--- NOTE | 2022-12-13 11:20 | PC.NURSE ---
DR POLANCO AT BEDSIDE TO UPDATE PT ON POC
[2022-12-13 11:30] VITALS: BP 130/67; PULSE 69; RESP 17; TEMP 36.7; O2SAT 100
== END 2022-12-13 11:30 | disposition home or self-care (01) ==
PROVIDERS: Emergency Provider Emergency Medicine; PCP Family Medicine
DX: M75.21 Bicipital tendinitis, right shoulder (principal)
CPT/HCPCS: 73030; 99283; 99284

== ENCOUNTER 2023-01-28 11:00 | Outpatient (RCR) | payer MEDICARE, SELFPAY ==
--- NOTE | 2022-12-24 10:29 | HMH.OTOPEV ---
OT Inpatient Evaluation Rehab OT Outpatient Eval Start: 12/24/22 10:14 Freq: Status: Active Protocol: Document 12/24/22 10:14 [email or web address] (Rec: 12/24/22 10:29 [facility] [id number]) E-signed By Frankie Luna, OT Outpatient Therapy Subjective History Subjective History Pt is a 77 year old female who is seen this date for OT evaluation due to pain and stiffness in R shoulder. Pt does not recall an injury to the R shoulder that caused the pain. Pt reports that she went to the ER ~ 1 week ago due to R shoulder pain. Pt complains of difficulty completing daily tasks. Pt is R hand dominant. She has a medical history of diabetes. Pt would benefit from skilled OT to address decreased AROM, increased pain, and decreased endurance. Chief Complaint Pain,Stiff Symptom Type Ache,Throb,Sharp Symptoms Relieved By Rest/Positioning Symptoms Aggravated By Lifting Prior Functional Limitations None Current Functional Limitations Reaching,Lifting,Housework, Dressing,Driving,Sleeping, Recreation Activity Symptom Description Intermittent,Activity Dependent Level of pain today (0-10) 8 Pain scale - at its best (0-10) 7 Pain scale - at its worst (0-10) 10 Shoulder/Elbow Eval Shoulder Objective Measurements Shoulder ROM Right Shoulder ROM Limitations Muscle Weakness,Pain Shoulder Abduction Active Range of 108 Motion (degrees) Shoulder Flexion Active Range of Motion 109 (degrees) Query Text: Shoulder External Rotation Active Range 80 of Motion (degrees) Shoulder Internal Rotation Active Range 41 of Motion (degrees) pain with active ROM shoulder exam right standard pain with passive ROM shoulder exam right standard decreased ROM shoulder exam standard right Shoulder MMT Shoulder Abduction Strength Grade 3 Fair Shoulder Flexion Strength Grade 3 Fair Shoulder External Rotation Strength 3 Fair Grade Shoulder Internal Rotation Strength 3 Fair Grade Shoulder Strength Patient Testing Sitting Position Shoulder Special Tests
== END 2023-01-28 11:52 | disposition home or self-care (01) ==
LOC: OT 11:00
PROVIDERS: PCP Family Medicine; Visit Provider Family Medicine
DX: M25.511 Pain in right shoulder (principal); M75.81 Other shoulder lesions, right shoulder
CPT/HCPCS: 97010; 97014; 97110; 97140; 97166; 97530; G0283

== ENCOUNTER 2024-07-09 12:39 | Emergency (ER) | payer MEDICARE, SELFPAY ==
[2024-07-09 12:41] VITALS: BP 126/66; PULSE 85; RESP 16; TEMP 36.6; O2SAT 98; BMI 18.1
--- NOTE | 2024-07-09 13:10 | PC.NURSE ---
Gave pt an ice pack
--- NOTE | 2024-07-09 13:20 | ED_ITS ---
Discharge Plan Disposition Patient Disposition: Home, Self-Care Prescriptions Prescriptions: No Action omeprazole 40 mg capsule,delayed release(DR/EC) 40 mg PO DAILY ferrous sulfate 27 mg iron tablet 27 mg PO TID simvastatin 40 MG tablet 40 mg PO DAILY levothyroxine 100 MCG tablet 100 mcg PO DAILY potassium 99 MG tablet 99 mg PO DAILY metformin 500 MG tablet extended release 24hr 500 mg PO BID calcium carbonate-vitamin D3 500 MG tablet 500 mg PO DAILY hvxxmdci-fvw-etdc-FA-vit K-lut 1 EACH tablet 1 each PO DAILY diclofenac sodium [Arthritis Pain (diclofenac)] 1 % gel 2 g topical QID Qty: 100 2RF Rx Instructions: apply to single elbow, wrist or hand; for hand includes palm/fingers/back of hand Referrals Follow up/Referrals: Lalo Coburn MD [Primary Care Provider] - See instructions Activity Restrictions/Add. Instructions Additional Instructions/Restrictions: Apply ice pack to site of pain. Take Benadryl as needed. Please return the emerged part with any new, concerning, worsening symptoms. Clinical Impressions Clinical Impression: Hymenoptera sting Instructions Patient Instructions: DI for Insect Bites and Stings Print Language Print Language: Korean Discharge ED Provider: Todd Herrera General Adult HPI General Chief complaint: PAIN Stated complaint: bee sting to inner right upper arm Time Seen by Provider: 07/09/24 13:00 Mode of Arrival: Wheelchair Source of Information: Patient Limitations: No Limitations Description of Symptoms (Recalled from ER Triage Doc. by RN): bee sting to the r inner elbow. hurts History of Present Illness HPI narrative: This is a 78-year-old female who with a history of diabetes who presents after a yellowjacket sting to her right medial forearm. States that she was stung earlier today but is still having a sharp pain in the area. Is concerned the stinger is retained. Denies any rash, swelling, pruritus, throat swelling, difficulty breathing, abdominal pain, nausea/vomiting. Related Data Home Medications ?Medication ?Instructions ?Recorded ?Confirmed levothyroxine 100 mcg tablet 100 mcg PO DAILY THYROID 04/11/19 04/25/24 metformin 500 mg tablet,extended 500 mg PO BID Diabetes 04/11/19 04/25/24 release 24hr (osmotic) potassium 99 mg tablet 99 mg PO DAILY Supplement 04/11/19 04/25/24 simvastatin 40 mg tablet 40 mg PO DAILY Cholesterol 04/11/19 04/25/24 omeprazole 40 mg capsule,delayed 40 mg PO DAILY Supplement 07/28/19 04/25/24 release ferrous sulfate 27 mg iron tablet 27 mg PO TID Supplement 04/26/20 04/25/24 calcium carbonate 500 mg-vitamin 500 mg PO DAILY Supplement 05/17/20 04/25/24 D3 5 mcg (200 unit) tablet jkxqrojs-ltyv-ojqo 8 mg-folic 400 1 each PO DAILY Supplement 08/07/20 04/25/24 mcg-K 50 mcg-lutein 300 mcg tablet Previous Rx's ?Medication ?Instructions ?Recorded diclofenac sodium 1 % topical gel 2 g topical QID #100 grams 12/13/22 (Arthritis Pain (diclofenac)) Allergies Allergy/AdvReac Type Severity Reaction Status Date / Time No Known Allergies Allergy Verified 04/25/24 09:55 [facility] Disclaimer: The information contained in this section may have been updated after the patient was seen, as this information can be updated by other users. Social History Smoking Status: Never smoker second hand exposure: No alcohol intake: never substance use type: denies use current occupational status: retired Travel in the last 8 weeks: None household members: family housing: house current occupational exposures/hazards: No caffeine: Yes ROS Obtained: Yes All systems reviewed & no additional complaints except as documented Physical Exam General General appearance: alert and in no apparent distress Eye Eye exam: Present normal appearance, PERRL and EOMI Respiratory Respiratory exam: Present normal lung sounds bilaterally; Absent respiratory distress Cardiovascular Cardiovascular exam: Present regular rate and normal rhythm Abdominal Exam Abdominal exam: Present soft and distention; Absent tenderness, guarding or rebound Extremities Exam Extremities exam: Present normal inspection Neurological Exam Neurological exam: Present alert and oriented X3 Skin Skin exam: Present warm, dry and other (No rash, swelling, or stinger) Medical Decision Making Medical Records Medical records reviewed: Yes I reviewed the patient's medical records. Screening: Per USPSTF and CDC recommendations, given the prevalence of disease in our region, it is our hospital?s policy to screen for HIV and viral Hepatitis for all patients aged 18 and over and those with ongoing risk factors. Hammad Inquiry Pt receiving controlled substance: No Vital Signs: 07/09/24 12:41 07/09/24 13:25 Temperature 97.9 F 98.0 F Temperature Source Oral Oral Pulse Rate 80 Pulse Rate [Left] 85 Respiratory Rate 16 20 Blood Pressure 110/78 Blood Pressure [Left Arm] 126/66 Blood Pressure Mean [Left Arm] 86 02 Sat by Pulse Oximetry 98 Oxygen Delivery Method Room Air Room Air Orders (Tests/Meds): ORDERS Category Date Time Status HIV (1&2) Antibody Rapid Stat Lab 07/09/24 12:54 Ordered Hep C Ab with Reflex to RNA Stat Lab 07/09/24 12:54 Ordered Medical Decision Narrative: This is an 78-year-old female with a history of diabetes who presents with a yellowjacket sting to her right medial, proximal forearm. On arrival, patient is afebrile, hemodynamically stable, nontoxic-appearing. Differential diagnosis includes but is not limited to allergic reaction, anaphylaxis, hymenoptera sting. No evidence of allergic reaction or anaphylaxis. No stinger to remove. Patient was counseled on management at home with ice packs, Benadryl, and Tylenol/ibuprofen if needed for pain. Ultimately discharged in stable condition. No intervention needed. Critical Care Critical Care Time Critical Care Time: No
[2024-07-09 13:25] VITALS: BP 110/78; PULSE 80; RESP 20; TEMP 36.7; O2SAT 94
== END 2024-07-09 13:26 | disposition home or self-care (01) ==
PROVIDERS: Emergency Provider Student in an Organized Health Care Education/Training Program; PCP Family Medicine
DX: S50.861A Insect bite (nonvenomous) of right forearm, initial encounter (principal); E11.9 Type 2 diabetes mellitus without complications; W57.XXXA Bitten or stung by nonvenomous insect and other nonvenomous arthropods, initial encounter; Y92.9 Unspecified place or not applicable
CPT/HCPCS: 99282

== ENCOUNTER 2024-08-23 09:50 | Outpatient (POV) | payer MEDICARE, SELFPAY | END 2024-08-23 23:59 | disposition home or self-care (01) | LOC: SC 08-24 07:42 | PROVIDERS: Visit Provider Dermatology | DX: Z00.00 Encounter for general adult medical examination without abnormal findings (principal) ==

== ENCOUNTER 2025-08-16 10:49 | Outpatient (CLI) | payer MEDICARE, SELFPAY ==
--- OUTSIDE RECORDS SUMMARY | 2024-03-07 05:15 | XMS_ITS ---
Author Organization [facility] Address [address] [facility] [address] [place] [phone] Care Team Providers Care Wash Plant Operator Name Role Phone Canelo Coburnian Primary Care [...] 127 Performing Lab: Notes/Report: Test performed by [employer] [facility] , [address], [place] [address] Alek Osorio MD, Rolling Attendant CLIA: [id number] Sodium 137 135-145 mEq/L Potassium 4.1 3.5-5.3 [...] Interpretation:Normal Performing Lab: Notes/Report: Test performed by [employer] [address] [place] [address] , [place] [address] Alek Osorio MD, Rolling Attendant CLIA: [id number] Thyroxine Free (free T4) 1.54 0.86-1.76 ng/dL P-Iron Reviewed date:03/09/2024 10:28:30 AM Interpretation:Normal Performing Lab: Notes/Report: Test performed by [employer] [address] [place] [address] , [place] [address] Alek Osorio MD, Rolling Attendant CLIA: [id number] Iron 57 37-145 ug/dL P-TSH Reviewed date:03/09/2024 10:28:30 AM Interpretation:Normal Performing Lab: Notes/Report: Test performed by [employer] [address] [place] [address] , [facility] C, [place] [address] Alek Osorio MD, Rolling Attendant CLIA: [id number] TSH 3.50 0.43-5.25 mU/L REASON FOR VISIT [...] 03/07/2024 Encounters Encounter Location Date Provider Diagnosis [facility] [address] [facility] [address] [place], [place] [phone] 03/07/2024 Lalo Coburn Type 2 diabetes estrellita [...] Notes * ARSENIO CROCKER:1945 (80 yo F)Acc No.[id number]:03/07/2024 Progress Notes Patient: AYANNA BERMAN Provider: Cindy Coburn M.D. :1945 A ge:78 Y S ex:Female Date:03/07/2024 Address:[address] [place] [id number] Subjective: * Chief Complaints: * 1 . [...] G 2211 Complex e/[place], [address] GLUCOSE TEST, 96933 GLYCATED HEMOGLOBIN TEST, Modifiers: QW , 31897 CBC WITH AUTO DIFF * Follow Up: 6 Months * Images: Billing Information: * Visit Code: 60333 Office Visit, Est Pt., Level 4. * Procedure Codes: G2211 Complex e/[place]. [address] GLUCOSE TEST. 30404 GLYCATED HEMOGLOBIN TEST. Modifiers: QW 25166 CBC WITH AUTO DIFF. * Electronic signature of Susana Coburn MD on 08/17/2025 at 02:20 PM EDT Sign off status: Pending * Provider: Cindy Coburn M.D. Date: 0 03/07/2024 Generated for Yosef ng/Sunshineg/eTransmitting on: 1 02:20 PM EDT History and Physical Notes * HPI (History [...]
--- OUTSIDE RECORDS SUMMARY | 2024-06-09 05:30 | XMS_ITS ---
Author Organization [facility] Address [address] [facility] [address] [place] [phone] Care Team Providers Care Hot Cell Technician Name Role Phone Lalo Coburn Primary Care Provider [phone] Allergies Allergen (clinical drug ingredient) Drug/Non Drug [...] 06/09/2024 Encounters Encounter Location Date Provider Diagnosis [facility] [address] [place] [phone] 06/09/2024 Lalo Coburn Type 2 diabetes estrellita [...] Notes * AYANNA CROCKERDOB:1945 (80 yo F)Acc No.[id number]:06/09/2024 Progress Notes Patient: AYANNA BERMAN Provider: Cindy Coburn M.D. :1945 A ge:78 Y S ex:Female Date:06/09/2024 Address:[address] [place], [place] [address] Subjective: * Chief Complaints: * 1 [...] G 2211 Complex e/[place], [address] CAPILLARY BLOOD DRAW, 65210 GLUCOSE TEST, 67684 GLYCATED HEMOGLOBIN TEST, Modifiers: QW * Follow Up: a s scheduled,and prn * Images: Billing Information: * Visit Code: 61354 Office Visit, Est Pt., Level 3. * Procedure Codes: G2211 Complex e/[place]. [address] CAPILLARY BLOOD DRAW. 34891 GLUCOSE TEST. 77285 GLYCATED HEMOGLOBIN TEST. Modifiers: QW * Electronic signature of Susana Coburn MD on 08/17/2025 at 02:21 PM EDT Sign off status: Pending * Provider: Cindy Coburn M.D. Date: 0 06/09/2024 Generated for Yosef anderson/Alon/eTransmitting on: 1 02:21 PM EDT History and Physical Notes * [...]
--- OUTSIDE RECORDS SUMMARY | 2024-09-05 09:30 | XMS_ITS ---
Author Organization [facility] Address [address] [facility] [address] [place] [id number] Care Team Providers Care Rn Social Services Name Role Phone Lalo Coburn Primary Care [...] [address] [place] [id number] 09/05/2024 [place]illa [place] Other fatigue R53.83 and Snoring R06.83 Assessments [...] Notes * AYANNA CROCKERDOB:1945 (80 yo F)Acc No.[id number]:09/05/2024 Progress Notes Patient: AYANNA BERMAN Provider: Cindy Coburn M.D. :1945 A ge:79 Y S ex:Female Date:09/05/2024 Address:[address] [place], [place] [address] [address] [place], [id number] Subjective: * Chief Complaints: * 1 . [...] * Images: Billing Information: * Visit Code: 05454 Office Visit, Est Pt., Level 3. * Procedure Codes: G2211 Complex e/m visit add on. * Electronic signature of Susana Coburn MD on 08/17/2025 at 02:20 PM EDT Sign off status: Pending * Provider: Cindy Coburn M.D. Date: 11/05/2023 Generated for Yosef anderson/Alon/Aníbalitting on: 02:20 PM EDT History and Physical Notes [...]
--- OUTSIDE RECORDS SUMMARY | 2025-01-30 06:00 | XMS_ITS ---
Author Organization [facility] Address [address] [facility] [address] [place] [id number] Care Team Providers Care Fittings Tightener Name Role Phone Canelo Coburnian Primary Care [...] 100 Performing Lab: Notes/Report: Test performed by [facility] [address] [place] [address] , [address], [place] [address] Alek Osorio MD, Garage Door Service Technician CLIA: [id number] Sodium 136 135-145 mmol/L Potassium 4.9 3.5-5.3 [...] Normal Performing Lab: Notes/Report: Test performed by [facility] [address] [place] [address] , [place] [address] Alek Osorio MD, Garage Door Service Technician CLIA: [id number] Thyroxine Free (free T4) 1.66 0.86-1.76 ng/dL P-Hemoglobin A1C Reviewed date:02/01/2025 09:01:58 AM Interpretation:7.9 Performing Lab: Notes/Report: Test performed by [facility] [address] [place] [address] , [address], [place] [address] Alek Osorio MD, Garage Door Service Technician CLIA: [id number] Hemoglobin A1C 7.9 <5.7 % The following HbA1c ranges recommended by the [place] [employer] (ADA) may be used as an aid in the diagnosis of diabetes mellitus. HbA1c Suggested Diagnosis >=6.5% Diabetic 5.7% - 6.4% Pre-Diabetic <5.7% Non-Diabetic P-Iron Reviewed date:02/01/2025 09:01:58 AM Interpretation: Normal Performing Lab: Notes/Report: Test performed by [facility] [address] [place] [address] , [address], [place] [address] Alek Osorio MD, Garage Door Service Technician CLIA: [id number] Iron 63 37-145 ug/dL P-Lipid Panel Reviewed date:02/01/2025 09:01:59 AM Interpretation: Normal Performing Lab: Notes/Report: Test performed by [facility] [address] [place] [address] [address], [place] [address] Alek Osorio MD, Garage Door Service Technician CLIA: [id number] Cholesterol 177 <200 mg/dL Triglycerides 72 <150 [...] Normal Performing Lab: Notes/Report: Test performed by [facility] [address] [place], [place] [address] , [facility], [place] [address] Alek Osorio MD, Garage Door Service Technician CLIA: [id number] TSH 2.68 0.43-5.25 mU/L P-Microalbumin/Creatinine, R andom Urine Sample Reviewed date:02/01/2025 09:01:59 AM Interpretation:ablum/creat 54 Performing Lab: Notes/Report: Test performed by [facility] [address] [place] [address] , [address], [place] [address] Alek Osorio MD, Garage Door Service Technician CLIA: [id number] Albumin/Creatinine Ratio, Urine 54 0-30 ug/m g Microalbumin, Urine, Random 2.3 Creatinine, Urine 42.9 Estimated Average Glucose Reviewed date:02/01/2025 09:01:59 AM Interpretation:180 Performing Lab: Notes/Report: Test performed by [facility] [address] [place] [address] , [address], [place] [address] Alek Osorio MD, Garage Door Service Technician CLIA: [id number] Estimated Average Glucose (eAG) 180 Estimated Average [...] 01/30/2025 Encounters Encounter Location Date Provider Diagnosis [facility] [address] [place] [id number] 01/30/2025 Lalo Coburn Type 2 diabetes estrellita [...] Notes * AYANNA CROCKERDOB:1945 (80 yo F)Acc No.[id number]:01/30/2025 Progress Notes Patient: AYANNA BERMAN Provider: Cindy Coburn M.D. :1945 A ge:79 Y S ex:Female Date:01/30/2025 [facility] [address] [id number] Subjective: * Chief [...] anemia type - D50.9 5 . B WA < 18.5 - Z68.1 Plan: * Treatment: [...] stimated Average Glucose 180 - mg/dL * [facility], IT support 01/31/2025 06:20:07 : This order was created by the Interface. Bryanna Penn 02/01/2025 09:01:50 AM > See phone encounter * Procedure Codes: G 2211 Complex e/[place] [address] CBC WITH AUTO DIFF, 3051F HG A1C>EQUAL 7.0%<8.0%, G8752 MOST RECENT SYSTOLIC BP < 140MM HG, G8754 MOST RECENT DIASTOLIC BP < 90MM HG * Follow Up: 6 Months * Images: Billing Information: * Visit Code: 72367 Office Visit, Est Pt., Level 4. * Procedure Codes: G2211 Complex e/[place]. [address] CBC WITH AUTO DIFF. 3051F HG A1C>EQUAL 7.0%<8.0%. G8752 MOST RECENT SYSTOLIC BP < 140MM HG. G8754 MOST RECENT DIASTOLIC BP < 90MM HG. * Electronic signature of Susana Coburn MD on 08/17/2025 at 02:20 PM EDT Sign off status: Pending * Provider: Cindy Coburn M.D. Date: 0 01/30/2025 Generated for Michaellei ng/Fajimmyg/eTransmitting on: 1 02:20 PM EDT History and [...]
--- OUTSIDE RECORDS SUMMARY | 2025-01-30 06:45 | XMS_ITS ---
Author Organization [facility] Address [address] [facility] [address] [place] [phone] Care Team Providers Care Residential Plumber Name Role Phone Lalo Coburn Primary Care [...] Provider Diagnosis [facility] [address] [place] [phone] 01/30/2025 Lalo Coburn Plan Of Treatment No Information Progress Notes * AYANNA CROCKERDOB:1945 (80 yo F)Acc No.[id number]:01/30/2025 Progress Notes Patient: AYANNA BERMAN Provider: Cindy Coburn M.D. :1945 A ge:79 Y S ex:Female Date:01/30/2025 Address[facility] [id number] Subjective: * Chief Complaints: * 1 . [...] 0 01/30/2025 Generated for Yosef anderson/Alon/Brayan on: 1 02:20 PM EDT History and [...]
--- OUTSIDE RECORDS SUMMARY | 2025-08-02 06:00 | XMS_ITS ---
Author Organization [facility] Address [address] [place] [phone] Care Team Providers Care Buying Intern Name Role Phone Lalo Coburn Primary Care Provider REASON FOR VISIT 6 months Encounters Encounter Location Date Provider Diagnosis [facility] [address] [place] [phone] 08/02/2025 Lalo Coburn Plan Of Treatment No Information Progress Notes * AYANNA CROCKERDOB:1945 (80 yo F)Acc No.[id number]:08/02/2025 Progress Notes Patient: AYANNA BERMAN Provider: Cindy Coburn M.D. :1945 A ge:80 Y S ex:Female Date:08/02/2025 Address:[address] [place], [id number] Subjective: * Chief Complaints: * 1 . 6 months. * Medical History: Objective: * Vitals: Assessment: Plan: * Treatment: * Images: Billing Information: * Visit Code: * Procedure Codes: * Electronic signature of Susana Coburn MD on 08/17/2025 at 02:20 PM EDT Sign off status: Pending * Provider: Cindy Coburn M.D. Date: Generated for Yosef anderson/Alon/Brayan on: 02:20 PM EDT
[2025-08-16 13:19] LABS: Microscopic, Urine URINE MICROSCOPIC (MICROSCOPIC)
[2025-08-16 13:44] LABS: Hematocrit 38.4 % (37.0-47.0); Hemoglobin 12.8 g/dL (12.2-16.2); Immature Granulocytes % 0.1 %; Mean Corpuscular HGB Conc 33.3 g/dL (31.8-35.4); Mean Corpuscular Hemoglobin 30.7 pg (27.0-31.2); Mean Corpuscular Volume 92.1 fl (81-99); Nucleated Red Blood Cells % 0 %; Platelet Count 346 K/mm3 (142-424); Red Blood Count 4.17 M/mm3 (4.20-5.40); Red Cell Distribution Width-SD 43.5 fL; White Blood Count 7.2 K/mm3 (4.8-10.8)
[2025-08-16 14:12] LABS: Alanine Aminotransferase 24 U/L (12-78); Albumin Level 3.9 g/dl (3.5-5.0); Albumin/Globulin Ratio 1.0 (1.1-1.8); Alkaline Phosphatase 103 U/L (38-126); Anion Gap 12.2 mEq/L (5-15); Aspartate Amino Transferase 31 U/L (14-36); Bilirubin,Total 0.5 mg/dl (0.2-1.3); Blood Urea Nitrogen 13 mg/dl (7-17); Calcium 10.2 mg/dl (8.4-10.2); Carbon Dioxide 31 mmol/L (22.0-30.0); Chloride 90 mmol/L (98-107); Cholesterol 183 mg/dl (140-200); Creatinine,Serum 0.60 mg/dl (0.52-1.04); Estimated Glomerular Filt Rate 96 ml/min (>60); GFR (African American) 116 ML/MIN (>60); Globulin 3.8 g/dL (1.3-3.2); Glucose 112 mg/dl (74-100); HDL Cholesterol 84 mg/dl (40-60); Iron 90 ug/dL (37-170); Potassium 4.2 mmoL/L (3.5-5.1); Sodium 129 mmol/L (136-145); Total Protein,Serum 7.7 g/dl (6.3-8.2); Triglycerides 83 mg/dl (30-150)
[2025-08-16 14:24] LABS: Total Iron Binding Capacity 295 ug/dL (265-497)
[2025-08-16 14:33] LABS: 25-OH Vitamin D, Total 50.4 ng/mL (30-100); Free T4 (Free Thyroxine) 1.68 ng/dl (0.78-2.19)
[2025-08-16 14:46] LABS: Thyroid Stimulating Hormone 3.23 uIU/mL (0.465-4.68)
[2025-08-16 14:50] LABS: Ferritin 111 ng/ml (11.1-264)
[2025-08-16 15:04] LABS: Vitamin B12 437 pg/mL (239-931)
[2025-08-16 16:06] LABS: Bilirubin,Urine Negative (Negative); Color,Urine YELLOW (Yellow); Glucose,Urine (UA) Negative (Negative); Ketones,Urine Negative (Negative); Leukocyte Esterase,Urine Negative (Negative); PH,Urine 7.5 (5.0-8.5); Protein,Urine Negative (Negative); Specific Gravity, Urine 1.015 (1.005-1.030); Urobilinogen,Urine 0.2 EU/dl (0.2)
[2025-08-16 16:34] LABS: Hemoglobin A1C 7.2 % (4.0-6.0)
[2025-08-16 17:53] LABS: Amorphous Sediment,Urine 2+ /lpf; Mucus,Urine 3+ /lpf; WBC,Urine Occasional #/hpf (0-3)
[2025-08-16 17:54] LABS: Bacteria,Urine 1+ /lpf
--- OUTSIDE RECORDS SUMMARY | 2025-08-17 14:21 | XMS_ITS | Patient Health Record ---
Author [facility] [address] [facility] [address] [facility] [address] [place] [phone] Care Team Providers Care Coal Washer Name Role Phone Lalo Coburn Primary Care [...] 100 Performing Lab: Notes/Report: Test performed by [facility] [address] [place] [address] , [address], [place] [address] Alek Osorio MD, Material Expediter CLIA: [id number] Sodium 136 135-145 mmol/L Potassium 4.9 3.5-5.3 [...] Normal Performing Lab: Notes/Report: Test performed by [facility] [address] [place] [address] , [place] [address] Alek Osorio MD, Material Expediter CLIA: [id number] Thyroxine Free (free T4) 1.66 0.86-1.76 ng/dL P-Hemoglobin A1C Reviewed date:02/01/2025 09:01:58 AM Interpretation:7.9 Performing Lab: Notes/Report: Test performed by [facility] [address] [place] [address] , [facility] [address] Alek Osoroi MD, Material Expediter CLIA: [id number] Hemoglobin A1C 7.9 <5.7 % The following HbA1c ranges recommended by the [place] [employer] (ADA) may be used as an aid in the diagnosis of diabetes mellitus. HbA1c Suggested Diagnosis >=6.5% Diabetic 5.7% - 6.4% Pre-Diabetic <5.7% Non-Diabetic P-Iron Reviewed date:02/01/2025 09:01:58 AM Interpretation: Normal Performing Lab: Notes/Report: Test performed by [facility] [address] [place] [address] , [place] [address] Alek Osorio MD, Material Expediter CLIA: [id number] Iron 63 37-145 ug/dL P-Lipid Panel Reviewed date:02/01/2025 09:01:59 AM Interpretation: Normal Performing Lab: Notes/Report: Test performed by [facility] [address] [place] [address] [address], [place] [address] Alek Osorio MD, Material Expediter CLIA: [id number] Cholesterol 177 <200 mg/dL Triglycerides 72 <150 [...] Normal Performing Lab: Notes/Report: Test performed by [facility] [address] [place], [place] [address] [address] Alek Osorio MD, Material Expediter CLIA: [id number] TSH 2.68 0.43-5.25 mU/L P-Microalbumin/Creatinine, R andom Urine Sample Reviewed date:02/01/2025 09:01:59 AM Interpretation:ablum/creat 54 Performing Lab: Notes/Report: Test performed by [facility] [address] [place] [address] , [address], [place] [address] Alek Osorio MD, Material Expediter CLIA: [id number] Albumin/Creatinine Ratio, Urine 54 0-30 ug/m g Microalbumin, Urine, Random 2.3 Creatinine, Urine 42.9 Estimated Average Glucose Reviewed date:02/01/2025 09:01:59 AM Interpretation:180 Performing Lab: Notes/Report: Test performed by [facility] [address] [facility] , [address], [place] [address] Alek Osorio MD, Material Expediter CLIA: [id number] Estimated Average Glucose (eAG) 180 Estimated Average Glucose (eAG) is calculated using the equation eAG = (28.7 x HbA1c) - 46.7 based on the guidelines established by the ADA. If the patient has certain diseases including kidney disease, sickle cell anemia, thalassemia, or is taking medications such as dapsone, erythropoietin, or iron, eAG should not be evaluated. Reason For Referral No Information Medications Medication SIG (Take, Route, Frequency, Duration) Notes Start Date End Date Status FeroSul 325 (65 Fe) MG 1 tablet Orally 3 times a day; Duration: 30 days Active Simvastatin 40 MG 1 tablet in the even ing Orally Once a day; Duration: 30 days Active Diclofenac Sodium 1 % as directed applie d topically 4 times a day Active Omeprazole 40 MG 1 cap(s) orally once a day; Duration: 30 days Active Levothyroxine Sodium 125 MCG 1 tab(s) Or ally once a day; Duration: 90 days Active Centrum Silver - 1 tab(s) orally once a day Active PreserVision AREDS 2 - 1 cap(s) orally o nce a day; Duration: 30 day(s) Active OS-VIOLETA 500 1250 MG 1 TAB(S) ORALLY 3 TI MES A DAY Active metFORMIN HCl 500 MG 2 tablets Orally tw ice a day; Duration: 30 days Active Potassium Chloride ER 10 MEQ 1 capsule w ith food Orally daily; Duration: 30 days Active Immunizations Vaccine Route Administration Date Status Comme nts COVID 19 Moderna Unknown 06/15/2021 Administered COVID 19 Moderna Unknown 07/14/2021 Administered COVID 19 Moderna Unknown 02/15/2022 Administered Fluzone High Dose (65yr and older) IM Intramuscular 08/06/2015 Administered Fluzone High Dose (65yr and older) IM Intramuscular 08/01/2016 Administered Fluzone High Dose (65yr and older) IM Intramuscular 07/17/2017 Administered Fluzone High Dose (65yr and older) IM Intramuscular 06/28/2018 Administered Fluzone High Dose (65yr and older) IM Intramuscular 06/29/2019 Administered Fluzone High Dose (65yr and older) IM Intramuscular 06/19/2020 Administered Fluzone High Dose (65yr and older) IM Intramuscular 07/31/2021 Administered Fluzone High Dose (65yr and older) IM Intramuscular 07/11/2022 Administered Fluzone High Dose (65yr and older) IM Intramuscular 07/01/2023 Administered Hepatitis A (adult) Unknown 10/13/2018 Administered Hepatitis A (adult) Unknown 04/18/2019 Administered PNEUMOVAX 23 VACCINE IM Intramuscular 02/25/2018 Administe red Prevnar (PCV13) IM Intramuscular 01/26/2017 Administered Prevnar (PCV20) IM Intramuscular 09/09/2022 Administered Shingrix Unknown 09/09/2021 Pending Shingrix IM Intramuscular 03/06/2022 Administered xFluzone High Dose-private (65yr&older) Unknown 06/29/2019 Administered Problems Problem Type SNOMED Code ICD Code Onset Dates Problem Status W/U Status Risk Notes Problem Low back pain (226441954) Low back pain (M54.5) Active confirmed Problem Arthropathy of lumbar facet joint (992836847) Lumbar facet arthropathy (M47.816) Active confirmed Problem Hypokalemia (83837541) History of hypokalemia (Z86.39) Active confirmed Problem Chronic pain (72592908) Other chronic pain (G89.29) Active confirmed Problem Gastroparesis (497870164) Gastroparesis (K31.84) Active confirmed Problem Degeneration of lumbar intervertebral disc (00658666) Lumbar degenerative disc disease (M51.36) Active confirmed Problem Type II diabetes mellitus without complication (456243713) Type 2 diabetes mellitus without complication (E11.9) Active confirmed Problem Acquired hypothyroidism (284959431) Acquired hypothyroidism (E03.9) Active confirmed Problem Hyperlipidemia (13343321) Hyperlipidemia, unspecified hyperlipidemia (E78.5) Active confirmed Problem Gastroesophageal reflux disease (819064384) Gastroesophageal reflux disease, esophagitis presence not specified (K21.9) Active confirmed Problem Iron deficiency anemia due to chronic blood loss (617485101) Iron deficiency anemia due to chronic blood loss (D50.0) Active confirmed Problem Kidney stone (17227607) Kidney stones (N20.0) Active confirmed Problem Iron deficiency anemia (61371717) Iron deficiency anemia, unspecified iron deficiency anemia type (D50.9) Active confirmed Vital Signs Heart Rate 79 /min 01/30/2025 Blood pressure diastolic 72 mm Hg 01/30/2025 Height 65.50 in 01/30/2025 Blood pressure systolic 114 mm Hg 01/30/2025 Weight 108.2 lbs 01/30/2025 BMI 17.73 kg/m2 01/30/2025 Encounters Encounter Location Date [facility] [id number] [facility]/2024 Lalo Dallas Other fatigue R53.83 and Snoring R06.[address] [id number] 01/30/2025 Lalo Dallas Type 2 diabetes estrellita itus without complication E11.9 ; Hyperlipidemia, unspecified hyperlipidemia E78.5 ; Acquired hypothyroidism E03.9 ; Iron deficiency anemia, unspecified iron deficiency anemia type D50.9 and BMI < 18.5 Z68.1 [facility] [place] [id number] 02/01/2025 Lalo Dallas [address] [id number] 03/20/2025 Lalo Dallas Assessments Encounter Date Diagnosis (ICD Code) Assessment Notes Treatment Notes Treatment Clinical Notes Section Notes 09/05/2024 Other fatigue (ICD-10 - R53.83) 09/05/2024 Snoring (ICD-10 - R06.83) 01/30/2025 Type 2 diabetes mellitus without complication (ICD-10 - E11.9) 01/30/2025 Hyperlipidemia, unspecified hyperlipidemia (ICD-10 - E78.5) 01/30/2025 Acquired hypothyroidism (ICD-10 - E03.9) 01/30/2025 Iron deficiency anemia, unspecified iron deficiency anemia type (ICD-10 - D50.9) 01/30/2025 BMI < 18.5 (ICD-10 - Z68.1) Plan Of Treatment Pending Test Test Name Order Date sleep study 09/05/2024 CBC 01/21/2021 COVID 19- Outpatient Swab, Rapid Nasal s wab, stand alone test 01/21/2021 Insurance Providers Payer Name Payer Address Payer Phone Subscriber Number Group Number Insured Name Patient Relationship to Insured Coverage Start Date Coverage End Date MEDICARE PART B [address] [address] [place] [id number] AYANNA CROCKER Self - patient is the insured Medical (General) History Medical History History ICD Code Hypothyroidism Hyperlipidemia Type 2 Diabetes, Dx: 04/2013 Low Back Pain Lumbar Degenerative Disc Disease, CT sca n 2017 Iron Deficiency Anemia Surgical History Surgery Date(Month/Year) Laproscopic cholecystectomy 02/2017 Bilateral Cataract Removal 08/2020 Cyst Removal off mid back- Dr. Rodriguez
== END 2025-08-16 23:59 | disposition home or self-care (01) ==
LOC: LAB.DROPOF 08-17 14:11
PROVIDERS: PCP Nurse Practitioner Family; Visit Provider Nurse Practitioner Family
DX: M81.0 Age-related osteoporosis without current pathological fracture (principal); E11.9 Type 2 diabetes mellitus without complications; E03.9 Hypothyroidism, unspecified; E78.5 Hyperlipidemia, unspecified; K21.9 Gastro-esophageal reflux disease without esophagitis; D64.9 Anemia, unspecified; Z13.21 Encounter for screening for nutritional disorder; R35.0 Frequency of micturition; M54.50 Low back pain, unspecified; Z79.4 Long term (current) use of insulin; G47.33 Obstructive sleep apnea (adult) (pediatric); R41.3 Other amnesia
CPT/HCPCS: 80053; 80061; 81001; 82043; 82306; 82570; 82607; 82728; 83036; 83540; 83550; 84439; 84443; 85025; 87086

== ENCOUNTER 2025-08-25 09:48 | Outpatient (CLI) | payer MEDICARE, SELFPAY ==
--- OUTSIDE RECORDS SUMMARY | 2024-03-07 04:15 | XMS_ITS ---
Author Organization [facility] Address [address] [facility] [address] [place] [id number] Care Team Providers Care Animal Stunner Name Role Phone Canelo Coburnian Primary Care Provider [phone] Allergies Allergen (clinical drug ingredient) Drug/Non Drug [...] 127 Performing Lab: Notes/Report: Test performed by [employer] [employer] [facility] , [address], [place] [address] Alek Osorio MD, Front Maker Lockstitch CLIA: [id number] Sodium 137 135-145 mEq/L Potassium 4.1 3.5-5.3 [...] Interpretation:Normal Performing Lab: Notes/Report: Test performed by [employer] [address] [place] [address] , [place] [address] Alek Osorio MD, Front Maker [employer]ch CLIA: [id number] Thyroxine Free (free T4) 1.54 0.86-1.76 ng/dL P-Iron Reviewed date:03/09/2024 10:28:30 AM Interpretation:Normal Performing Lab: Notes/Report: Test performed by [employer] [address] [place] [address] , [place] [address] Alek Osorio MD, Front Maker [employer] CLIA: [id number] Iron 57 37-145 ug/dL P-TSH Reviewed date:03/09/2024 10:28:30 AM Interpretation:Normal Performing Lab: Notes/Report: Test performed by [employer] [address] [place] [address] , [facility] [[email or web address]] C, [place] [address] Alek Osorio MD, Front Maker [employer] CLIA: [id number] TSH 3.50 0.43-5.25 mU/L REASON FOR VISIT [...] 03/07/2024 Encounters Encounter Location Date Provider Diagnosis [facility] [address] [facility] [address] [place], [place] [id number] 03/07/2024 Lalo Coburn Type 2 diabetes estrellita [...] Notes * ARSENIO CROCKER:1945 (80 yo F)Acc No.[id number]:03/07/2024 Progress Notes Patient: AYANNA BERMAN Provider: Cindy Coburn M.D. :1945 A ge:78 Y S ex:Female Date:03/07/2024 Address:[address] [place] [id number] Subjective: * Chief Complaints: * 1 . [...] G 2211 Complex e/[place], [address] GLUCOSE TEST, 66679 GLYCATED HEMOGLOBIN TEST, Modifiers: QW , 56104 CBC WITH AUTO DIFF * Follow Up: 6 Months * Images: Billing Information: * Visit Code: 46184 Office Visit, Est Pt., Level 4. * Procedure Codes: G2211 Complex e/[place]. [address] GLUCOSE TEST. 49596 GLYCATED HEMOGLOBIN TEST. Modifiers: QW 33548 CBC WITH AUTO DIFF. * Electronic signature of Susana Coburn MD on 08/25/2025 at 09:53 AM EST Sign off status: Pending * Provider: Cindy Coburn M.D. Date: 0 03/07/2024 Generated for Yosef anderson/Alon/eTransmitting on: 1 10/25/2024 09:53 AM EST History and Physical Notes * [...]
--- OUTSIDE RECORDS SUMMARY | 2024-06-09 04:30 | XMS_ITS ---
[facility] Address [address] [place] [phone] Care Team Providers Care Nuclear Powerplant Supervisor Name Role Phone Lalo Coburn Primary Care Provider [phone] Allergies Allergen (clinical drug ingredient) Drug/Non Drug [...] 06/09/2024 Encounters Encounter Location Date Provider Diagnosis [facility] [address] [place] [phone] 06/09/2024 Lalo Coburn Type 2 diabetes estrellita [...] Notes * AYANNA CROCKERDOB:1945 (80 yo F)Acc No.[id number]:06/09/2024 Progress Notes Patient: AYANNA BERMAN Provider: Cindy Coburn M.D. :1945 A ge:78 Y S ex:Female Date:06/09/2024 Address:[address] [place], [place] [address] Subjective: * Chief Complaints: * 1 [...] G 2211 Complex e/[place], [address] CAPILLARY BLOOD DRAW, 91689 GLUCOSE TEST, 92094 GLYCATED HEMOGLOBIN TEST, Modifiers: QW * Follow Up: a s scheduled,and prn * Images: Billing Information: * Visit Code: 02542 Office Visit, Est Pt., Level 3. * Procedure Codes: G2211 Complex e/[place]. [address] CAPILLARY BLOOD DRAW. 02163 GLUCOSE TEST. 52083 GLYCATED HEMOGLOBIN TEST. Modifiers: QW * Electronic signature of Susana Coburn MD on 08/25/2025 at 09:54 AM EST Sign off status: Pending * Provider: Cindy Coburn M.D. Date: 0 06/09/2024 Generated for Yosef anderson/Alon/Rogersmitting on: 1 10/25/2024 09:54 AM EST History and Physical Notes * [...]
--- OUTSIDE RECORDS SUMMARY | 2024-09-05 08:30 | XMS_ITS ---
[facility] Address [address] [facility] [address] [place] [id number] Care Team Providers Care Scoop Machine Operator Name Role Phone Lalo Coburn Primary Care Provider [phone] Allergies Allergen (clinical drug ingredient) Drug/Non Drug [...] [address] [place] [phone] 09/05/2024 [place] Other fatigue R53.83 and Snoring R06.83 Assessments [...] Notes * AYANNA CROCKERDOB:1945 (80 yo F)Acc No.[id number]:09/05/2024 Progress Notes Patient: AYANNA BERMAN Provider: Cindy Coburn M.D. :1945 A ge:79 Y S ex:Female Date:09/05/2024 Address:[address] [place], [place] [address] [address], [id number] Subjective: * Chief Complaints: * 1 . [...] * Images: Billing Information: * Visit Code: 19479 Office Visit, Est Pt., Level 3. * Procedure Codes: G2211 Complex e/m visit add on. * Electronic signature of Susana Coburn MD on 08/25/2025 at 09:54 AM EST Sign off status: Pending * Provider: Cindy Coburn M.D. Date: 11/05/2023 Generated for Yosef anderson/Alon/Aníbalitting on: 10/25/2024 09:54 AM EST History and Physical [...]
--- OUTSIDE RECORDS SUMMARY | 2025-01-30 05:00 | XMS_ITS ---
Author Organization [facility] Address [address] [facility] [address] [place] [id number] Care Team Providers Care Supervisor Data Processing Name Role Phone Canelo Coburnian Primary Care [...] 100 Performing Lab: Notes/Report: Test performed by [facility] [address] [place] [address] , [address], [place] [address] Alek Osorio MD, Cardiac Rehabilitation Program Director CLIA: [id number] Sodium 136 135-145 mmol/L Potassium 4.9 3.5-5.3 [...] Normal Performing Lab: Notes/Report: Test performed by [facility] [address] [place] [address] , [place] [address] Alek Osorio MD, Cardiac Rehabilitation Program Director CLIA: [id number] Thyroxine Free (free T4) 1.66 0.86-1.76 ng/dL P-Hemoglobin A1C Reviewed date:02/01/2025 09:01:58 AM Interpretation:7.9 Performing Lab: Notes/Report: Test performed by [facility] [address] [place] [address] , [address], [place] [address] Alek Osorio MD, Cardiac Rehabilitation Program Director CLIA: [id number] Hemoglobin A1C 7.9 <5.7 % The following HbA1c ranges recommended by the [place] [employer] (ADA) may be used as an aid in the diagnosis of diabetes mellitus. HbA1c Suggested Diagnosis >=6.5% Diabetic 5.7% - 6.4% Pre-Diabetic <5.7% Non-Diabetic P-Iron Reviewed date:02/01/2025 09:01:58 AM Interpretation: Normal Performing Lab: Notes/Report: Test performed by [facility] [address] [place] [address] , [address], [place] [address] Alek Osorio MD, Cardiac Rehabilitation Program Director CLIA: [id number] Iron 63 37-145 ug/dL P-Lipid Panel Reviewed date:02/01/2025 09:01:59 AM Interpretation: Normal Performing Lab: Notes/Report: Test performed by [facility] [address] [place] [address] [address], [place] [address] Alek Osorio MD, Cardiac Rehabilitation Program Director CLIA: [id number] Cholesterol 177 <200 mg/dL Triglycerides 72 <150 [...] Normal Performing Lab: Notes/Report: Test performed by [facility] [address] [place], [place] [address] , [facility], [place] [address] Alek Osorio MD, Cardiac Rehabilitation Program Director CLIA: [id number] TSH 2.68 0.43-5.25 mU/L P-Microalbumin/Creatinine, R andom Urine Sample Reviewed date:02/01/2025 09:01:59 AM Interpretation:ablum/creat 54 Performing Lab: Notes/Report: Test performed by [facility] [address] [place] [address] , [address], [place] [address] Alek Osorio MD, Cardiac Rehabilitation Program Director CLIA: [id number] Albumin/Creatinine Ratio, Urine 54 0-30 ug/m g Microalbumin, Urine, Random 2.3 Creatinine, Urine 42.9 Estimated Average Glucose Reviewed date:02/01/2025 09:01:59 AM Interpretation:180 Performing Lab: Notes/Report: Test performed by [email or web address] [address] [place] [address] , [address], [place] [address] Alek Osorio MD, Cardiac Rehabilitation Program Director CLIA: [id number] Estimated Average Glucose (eAG) 180 Estimated Average [...] 01/30/2025 Encounters Encounter Location Date Provider Diagnosis [facility] [address] [place] [id number] 01/30/2025 Lalo Coburn Type 2 diabetes estrellita [...] Notes * AYANNA CROCKERDOB:1945 (80 yo F)Acc No.[id number]:01/30/2025 Progress Notes Patient: AYANNA BERMAN Provider: Cindy Coburn M.D. :1945 A ge:79 Y S ex:Female Date:01/30/2025 [facility] [address] [id number] Subjective: * Chief [...] anemia type - D50.9 5 . B [place] < 18.5 - Z68.1 Plan: * Treatment: [...] stimated Average Glucose 180 - mg/dL * [facility], IT support 01/31/2025 06:20:07 : This order was created by the Interface. Bryanna Penn 02/01/2025 09:01:50 AM > See phone encounter * Procedure Codes: G 2211 Complex e/[place], [address] CBC WITH AUTO DIFF, 3051F HG A1C>EQUAL 7.0%<8.0%, G8752 MOST RECENT SYSTOLIC BP < 140MM HG, G8754 MOST RECENT DIASTOLIC BP < 90MM HG * Follow Up: 6 Months * Images: Billing Information: * Visit Code: 84993 Office Visit, Est Pt., Level 4. * Procedure Codes: G2211 Complex e/[place]. [address] CBC WITH AUTO DIFF. 3051F HG A1C>EQUAL 7.0%<8.0%. G8752 MOST RECENT SYSTOLIC BP < 140MM HG. G8754 MOST RECENT DIASTOLIC BP < 90MM HG. * Electronic signature of Susana Coburn MD on 08/25/2025 at 09:53 AM EST Sign off status: Pending * Provider: Cindy Coburn M.D. Date: 0 01/30/2025 Generated for Printi ng/Faxing/eTransmitting on: 1 10/25/2024 09:53 AM EST History [...]
--- OUTSIDE RECORDS SUMMARY | 2025-01-30 05:45 | XMS_ITS ---
Author Organization [facility] Address [facility] [address] [place] [id number] Care Team Providers Care Bundle Shaker Name Role Phone Lalo Coburn Primary Care Provider Allergies Allergen (clinical drug ingredient) Drug/Non Drug Allergy documented on EMR Reaction Allergy Type Onset Date Status naproxen Naproxen Unknown Drug Allergy Active REASON FOR VISIT checkup Medications Medication SIG (Take, Route, Frequency, Duration) Notes Start Date End Date Status Diclofenac Sodium 1 % as directed applie d topically 4 times a day Active metFORMIN HCl 500 MG TAKE 2 TABLETS BY M OUTH TWICE DAILY; Duration: 30 Active Centrum Silver - 1 tab(s) orally once a day Active PreserVision AREDS 2 - 1 cap(s) orally o nce a day; Duration: 30 day(s) Active OS-VIOLETA 500 1250 MG 1 TAB(S) ORALLY 3 TI MES A DAY Active Levothyroxine Sodium 125 MCG 1 tab(s) Or ally once a day; Duration: 90 days Active Potassium Chloride ER 10 MEQ TAKE 1 CAPS ULE BY MOUTH ONCE DAILY; Duration: 30 Active FeroSul 325 (65 Fe) MG TAKE 1 TABLET BY MOUTH THREE TIMES DAILY; Duration: 30 Active Simvastatin 40 MG 1 tab(s) orally once a day (at bedtime); Duration: 30 days Active Omeprazole 40 MG 1 cap(s) orally once a day; Duration: 90 days Active Encounters Encounter Location Date Provider Diagnosis [facility] [address] [place] [phone] 01/30/2025 Lalo Coburn Plan Of Treatment No Information Progress Notes * AYANNA CROCKERDOB:1945 (80 yo F)Acc No.[id number]:01/30/2025 Progress Notes Patient: AYANNA BERMAN Provider: Cindy Coburn M.D. :1945 A ge:79 Y S ex:Female Date:01/30/2025 [facility] [id number] Subjective: * Chief Complaints: * 1 . Checkup. * HPI: C ardiology: 79 year old female presents with c/o Hyperlipidemia P t is not fasting today. E ndocrinology: c/o Recent Blood Sugars P t here to f/u on DM 2. c/o Hypothyroidism P t here to f/u. Pt states she is doing well and does not have any concerns. * ROS: D ERMATOLOGY: no [place]. [...] * Allergies: N aproxen. Objective: * Vitals: Assessment: Plan: * Treatment: * Images: Billing Information: * Visit Code: * Procedure Codes: * Electronic signature of Susana Coburn MD on 08/25/2025 at 09:53 AM EST Sign off status: Pending * Provider: Cindy Coburn M.D. Date: 0 01/30/2025 Generated for Yosef anderson/Alon/Brayan on: 10/25/2024 09:53 AM EST History and Physical Notes * HPI (History of Present Illness) Category Sub-Category Detail Notes Category Not es Endocrinology Recent Blood Sugars Pt here to f/u on DM 2 Hypothyroidism Pt here to f/u. Pt s tates she is doing well and does not have any concerns Cardiology Hyperlipidemia Pt is not fasting today
--- OUTSIDE RECORDS SUMMARY | 2025-08-02 05:00 | XMS_ITS ---
Author Organization [facility] Address [address] [place] [phone] Care Team Providers Care Risk Management Consultant Name Role Phone Lalo Coburn Primary Care Provider [phone] REASON FOR VISIT 6 months Encounters Encounter Location Date Provider Diagnosis [facility] [address] [place] [id number] 08/02/2025 Lalo Coburn Plan Of Treatment No Information Progress Notes * AYANNA CROCKERDOB:1945 (80 yo F)Acc No.[id number]:08/02/2025 Progress Notes Patient: AYANNA BERMAN Provider: Cindy Cobrun M.D. :1945 A ge:80 Y S ex:Female Date:08/02/2025 Address:[address] [place], [id number] Subjective: * Chief Complaints: * 1 . 6 months. * Medical History: Objective: * Vitals: Assessment: Plan: * Treatment: * Images: Billing Information: * Visit Code: * Procedure Codes: * Electronic signature of Susana Coburn MD on 08/25/2025 at 09:53 AM EST Sign off status: Pending * Provider: Cindy Coburn M.D. Date: Generated for Yosef anderson/Alon/Brayan on: 10/25/2024 09:53 AM EST
--- NOTE | 2025-08-25 09:52 | XR_ITS ---
FINAL REPORT CLINICAL HISTORY: fall, pain to kristi hip/pelvis/coccyx COMPARISON: None FINDINGS: LEFT HIP: Two views of the left hip with an AP view of the pelvis demonstrate no acute fracture or dislocation. The joint spaces appear normal. The visualized bony structures are well aligned. No soft tissue abnormality is seen. Calcified fibroids are seen in the left hemipelvis. IMPRESSION: No acute bony abnormality. Reviewed, Interpreted and Dictated by Damien Almanzar MD Transcribed by Darshana David Authenticated and [facility]
--- NOTE | 2025-08-25 09:52 | XR_ITS ---
FINAL REPORT CLINICAL HISTORY: fall, pain to kristi hip/pelvis/coccyx COMPARISON: None FINDINGS: 3 views of the lumbar spine were obtained. There is no evidence of fracture. There is no malalignment. The vertebrae are normal in height. There is advanced disc space narrowing L2-3 through L5-S1 with endplate sclerosis and osteophyte formation. Mild lumbar scoliosis convex to the left measures 20 degrees. No paraspinous soft tissue abnormalities identified. IMPRESSION: No acute bony abnormality. Advanced degenerative disc disease L2-3 through L5-S1. Reviewed, Interpreted and Dictated by Damien Almanzar MD Transcribed by Darshana David Authenticated and [facility]
--- NOTE | 2025-08-25 09:52 | XR_ITS ---
FINAL REPORT CLINICAL HISTORY: fall, pain to kristi hip/pelvis/coccyx COMPARISON: None FINDINGS: RIGHT HIP Two views of the right hip demonstrate no acute fracture or dislocation. The joint spaces appear normal. The visualized bony structures are well aligned. No soft tissue abnormality is seen. IMPRESSION: No acute bony abnormality. Reviewed, Interpreted and Dictated by Damien Almanzar MD Transcribed by Darshana David Authenticated and [facility]
--- OUTSIDE RECORDS SUMMARY | 2025-08-25 09:54 | XMS_ITS | Patient Health Record ---
Author Organization [facility] Address [address] [facility] [address] [place] [id number] Care Team Providers Care Utilization Management Nurse Name Role Phone Lalo Coburn Primary Care Provider [phone] Allergies Allergen (clinical drug ingredient) Drug/Non Drug [...] 100 Performing Lab: Notes/Report: Test performed by [email or web address], [employer] [address] [place] [address] , [address], [place] [address] Alek Osorio MD, Reworker CLIA: [id number] Sodium 136 135-145 mmol/L Potassium 4.9 3.5-5.3 [...] Normal Performing Lab: Notes/Report: Test performed by [email or web address] [address] [place] [address] , [place] [address] Alek Osorio MD, Reworker CLIA: [id number] Thyroxine Free (free T4) 1.66 0.86-1.76 ng/dL P-Hemoglobin A1C Reviewed date:02/01/2025 09:01:58 AM Interpretation:7.9 Performing Lab: Notes/Report: Test performed by [email or web address] [address] [place] [address] , [place] [address] Alek Osorio MD, Reworker CLIA: [id number] Hemoglobin A1C 7.9 <5.7 % The following HbA1c ranges recommended by the [place] [employer] (ADA) may be used as an aid in the diagnosis of diabetes mellitus. HbA1c Suggested Diagnosis >=6.5% Diabetic 5.7% - 6.4% Pre-Diabetic <5.7% Non-Diabetic P-Iron Reviewed date:02/01/2025 09:01:58 AM Interpretation: Normal Performing Lab: Notes/Report: Test performed by [email or web address] [address] [place] [address] , [place] [address] Alek Osorio MD, Reworker CLIA: [id number] Iron 63 37-145 ug/dL P-Lipid Panel Reviewed date:02/01/2025 09:01:59 AM Interpretation: Normal Performing Lab: Notes/Report: Test performed by [email or web address] [address] [place] [address] [address], [place] [address] Alek Osorio MD, Reworker CLIA: [id number] Cholesterol 177 <200 mg/dL Triglycerides 72 <150 [...] Normal Performing Lab: Notes/Report: Test performed by [email or web address] [address] [place], [place] [address] [place] [address] Alek Osorio MD, Reworker CLIA: [id number] TSH 2.68 0.43-5.25 mU/L P-Microalbumin/Creatinine, R andom Urine Sample Reviewed date:02/01/2025 09:01:59 AM Interpretation:ablum/creat 54 Performing Lab: Notes/Report: Test performed by [email or web address] [address] [place] [address] , [address], [place] [address] Alek Osorio MD, Reworker CLIA: [id number] Albumin/Creatinine Ratio, Urine 54 0-30 ug/m g Microalbumin, Urine, Random 2.3 Creatinine, Urine 42.9 Estimated Average Glucose Reviewed date:02/01/2025 09:01:59 AM Interpretation:180 Performing Lab: Notes/Report: Test performed by [email or web address] [address] [facility] , [address], [place] [address] Alek Osorio MD, Reworker CLIA: [id number] Estimated Average Glucose (eAG) 180 Estimated Average [...] once a day; Duration: 30 days Active metFORMIN HCl 500 MG 2 tablets Orally tw ice a day; Duration: 30 days Active Levothyroxine [...] DAY Active Potassium Chloride ER 10 MEQ 1 capsule w ith food Orally daily; Duration: 30 days Active Immunizations Vaccine Route Administration Date Status Comme nts xFluzone High Dose-private (65yr&older) Unknown 06/29/2019 Administered Shingrix Unknown 09/09/2021 Pending Shingrix IM Intramuscular 03/06/2022 Administered Prevnar (PCV20) IM Intramuscular 09/09/2022 Administered Prevnar (PCV13) IM Intramuscular 01/26/2017 Administered PNEUMOVAX 23 VACCINE IM Intramuscular 02/25/2018 Administe red Hepatitis A (adult) Unknown 10/13/2018 Administered Hepatitis A (adult) Unknown 04/18/2019 Administered Fluzone High Dose (65yr and older) [...] (65yr and older) IM Intramuscular 07/01/2023 Administered COVID 19 Moderna Unknown 06/15/2021 Administered COVID 19 Moderna Unknown 07/14/2021 Administered COVID 19 Moderna Unknown 02/15/2022 Administered Problems Problem Type SNOMED Code ICD Code Onset Dates Problem Status W/U Status Risk Notes Problem Low back pain (567620610) Low back pain (M54.5) Active confirmed Problem Arthropathy of lumbar facet joint (036966894) Lumbar facet arthropathy (M47.816) Active confirmed Problem Hypokalemia (37092940) History of hypokalemia (Z86.39) Active confirmed Problem Chronic pain (02599900) Other chronic pain (G89.29) Active confirmed Problem Gastroparesis (325349182) Gastroparesis (K31.84) Active confirmed Problem Degeneration of lumbar intervertebral disc (25836334) Lumbar degenerative disc disease (M51.36) Active confirmed Problem Type II diabetes mellitus without complication (322956239) Type 2 diabetes mellitus without complication (E11.9) Active confirmed Problem Acquired hypothyroidism (638571159) Acquired hypothyroidism (E03.9) Active confirmed Problem Hyperlipidemia (28524919) Hyperlipidemia, unspecified hyperlipidemia (E78.5) Active confirmed Problem Gastroesophageal reflux disease (367728958) Gastroesophageal reflux disease, esophagitis presence not specified (K21.9) Active confirmed Problem Iron deficiency anemia due to chronic blood loss (515778127) Iron deficiency anemia due to chronic blood loss (D50.0) Active confirmed Problem Kidney stone (75977429) Kidney stones (N20.0) Active confirmed Problem Iron deficiency anemia (59106840) Iron deficiency anemia, unspecified iron deficiency anemia type (D50.9) Active confirmed Vital Signs Heart Rate 79 /min 01/30/2025 Blood pressure diastolic 72 mm Hg 01/30/2025 Height 65.50 in 01/30/2025 Blood pressure systolic 114 mm Hg 01/30/2025 Weight 108.2 lbs 01/30/2025 BMI 17.73 kg/m2 01/30/2025 Encounters Encounter Location Date [facility] [id number] 09/[facility]24 Lalo Visalia Other fatigue R53.83 and Snoring R06.[address] [id number] 01/30/2025 Lalo Visalia Type 2 diabetes estrellita itus without complication E11.9 ; Hyperlipidemia, unspecified hyperlipidemia E78.5 ; Acquired hypothyroidism E03.9 ; Iron deficiency anemia, unspecified iron deficiency anemia type D50.9 and BMI < 18.5 Z68.1 [facility] [id number] 02/01/2025 Lalo Visalia [address] [id number] 03/20/2025 Lalo Visalia Assessments Encounter Date Diagnosis (ICD Code) Assessment [...] Date MEDICARE PART B [address] [address] [place] [address] [id number] AYANNA CROCKER Self - patient is the insured Medical (General) History Medical History History ICD Code Hypothyroidism Hyperlipidemia Type 2 Diabetes, Dx: 04/2013 Low Back Pain Lumbar Degenerative Disc Disease, CT sca n 2017 Iron Deficiency Anemia Surgical History Surgery Date(Month/Year) Laproscopic cholecystectomy 02/2017 Bilateral Cataract Removal 08/2020 Cyst Removal off mid back- Dr. Rodriguez
[2025-08-25 11:21] LABS: Anion Gap 11.3 mEq/L (5-15); Blood Urea Nitrogen 14 mg/dl (7-17); Calcium 10.5 mg/dl (8.4-10.2); Carbon Dioxide 30 mmol/L (22.0-30.0); Chloride 94 mmol/L (98-107); Creatinine,Serum 0.50 mg/dl (0.52-1.04); Estimated Glomerular Filt Rate 118 ml/min (>60); GFR (African American) 143 ML/MIN (>60); Glucose 116 mg/dl (74-100); Potassium 4.3 mmoL/L (3.5-5.1); Sodium 131 mmol/L (136-145)
== END 2025-08-25 23:59 | disposition home or self-care (01) ==
LOC: LAB 09:49
PROVIDERS: PCP Nurse Practitioner Family; Visit Provider Nurse Practitioner Family
DX: E87.1 Hypo-osmolality and hyponatremia (principal); M25.551 Pain in right hip; M25.552 Pain in left hip; M53.3 Sacrococcygeal disorders, not elsewhere classified
CPT/HCPCS: 36415; 72100; 73502; 80048; 83930; 83935

== ENCOUNTER 2025-08-31 08:40 | Outpatient (CLI) | payer MEDICARE, SELFPAY ==
--- OUTSIDE RECORDS SUMMARY | 2024-03-07 04:15 | XMS_ITS ---
Author Organization [facility] Address [address] [facility] [address] [place] [id number] Care Team Providers Care Food Editor Name Role Phone Canelo Coburnian Primary Care Provider Allergies Allergen (clinical drug ingredient) Drug/Non Drug Allergy documented on EMR Reaction Allergy Type Onset Date Status naproxen Naproxen Unknown Drug Allergy Active Results Component Value Reference Range Notes Glucose (In-House) Reviewed date:03/09/2024 10:28:30 AM Interpretation:160 Performing Lab: Notes/Report: 160 blood glucose 160 74 - 106 mg/dL CBC Venipuncture (in house) Reviewed date:03/07/2024 02:44:00 PM Interpretation: Performing Lab: Notes/Report: wbc 7.6 3.5 - 10 lymph 21.5 15 - 50 mid 5.8 2 - 15 gran 72.7 35 - 80 rbc 4.20 3.5 - 5.5 hgb 12.2 11.5 - 16.5 hct 37.5 35 - 55 mcv 89.4 75 - 100 mch 29.1 25 - 35 mchc 32.6 31 - 38 platlet 312 100 - 400 Glycohemoglobin A1c (in hous e) Reviewed date:03/09/2024 10:28:30 AM Interpretation:7.9 Performing Lab: Notes/Report: 7.9 glycohemoglobin 7.9% 5 - 6.5 % P-Comprehensive Metabolic Pa minor (CMP) Reviewed date:03/09/2024 10:27:24 AM Interpretation:cl 96, gluc 127 Performing Lab: Notes/Report: Test performed by [employer] [employer] [facility] , [address], [place] [address] Alek Osorio MD, Meter Tester CLIA: [id number] Sodium 137 135-145 mEq/L Potassium 4.1 3.5-5.3 mEq/L Chloride 96 97-108 mEq/L CO2 29 22-32 mEq/L Glucose 127 65-99 mg/dL BUN 12 8-23 mg/dL Creatinine 0.61 0.50-1.00 mg/dL Calcium 9.6 8.6-10.4 mg/dL eGFR by Creatinine 90 >59 mL/min/1.73m2 Protein 6.5 6.0-8.3 g/dL Albumin 4.2 3.5-5.3 g/dL Alkaline Phosphatase 73 35-121 IU/L ALT (SGPT) 21 <5-47 IU/L AST (SGOT) 19 <5-40 IU/L Bilirubin, Total 0.4 <0.2-1.2 mg/dL A/G Ratio 1.8 1.1-2.5 mg/dL P-T4 Free (thyroxine) Reviewed date:03/09/2024 10:28:30 AM Interpretation:Normal Performing Lab: Notes/Report: Test performed by [employer] [address] [place] [address] , [place] [address] Alek Osorio MD, Meter Tester CLIA: [id number] Thyroxine Free (free T4) 1.54 0.86-1.76 ng/dL P-Iron Reviewed date:03/09/2024 10:28:30 AM Interpretation:Normal Performing Lab: Notes/Report: Test performed by [employer] [address] [place] [address] , [place] [address] Alek Osorio MD, Meter Tester CLIA: [id number] Iron 57 37-145 ug/dL P-TSH Reviewed date:03/09/2024 10:28:30 AM Interpretation:Normal Performing Lab: Notes/Report: Test performed by [employer] [address] [place] [address] , [facility] [address], [place] [address] Alek Osorio MD, Meter Tester CLIA: [id number] TSH 3.50 0.43-5.25 mU/L REASON FOR VISIT 6 Month Check Up Medications Medication SIG (Take, Route, Frequency, Duration) Notes Start Date End Date Status Omeprazole 40 MG 1 cap(s) orally once a day; Duration: 90 days Active Potassium Chloride ER 10 MEQ TAKE 1 CAPS ULE BY MOUTH ONCE DAILY; Duration: 30 days Active Simvastatin 40 MG 1 tab(s) orally once a day (at bedtime); Duration: 30 days Active PreserVision AREDS 2 - 1 cap(s) orally o nce a day; Duration: 30 day(s) Active Levothyroxine Sodium 125 MCG 1 tab(s) Or ally once a day Active FeroSul 325 (65 Fe) MG TAKE 1 TABLET BY MOUTH THREE TIMES DAILY Active Diclofenac Sodium 1 % as directed applie d topically 4 times a day Active Centrum Silver - 1 tab(s) orally once a day Active OS-VIOLETA 500 1250 MG 1 TAB(S) ORALLY 3 TI MES A DAY Active metFORMIN HCl 500 MG 2 tab(s) orally 2 t imes a day Active Vital Signs Blood pressure systolic 122 mm Hg 03/07/20 24 Blood pressure diastolic 80 mm Hg 024 Heart Rate 72 /min 03/07/2024 Height 65.50 in 03/07/2024 Weight 108 lbs 03/07/2024 BMI 17.70 kg/m2 03/07/2024 Encounters Encounter Location Date Provider Diagnosis [facility] [address] [facility] [address] [place], [place] [id number] 03/07/2024 Lalo Coburn Type 2 diabetes estrellita itus without complication E11.9 ; Acquired hypothyroidism E03.9 ; Iron deficiency anemia, unspecified iron deficiency anemia type D50.9 and Peripheral edema R60.0 Assessments Encounter Date Diagnosis (ICD Code) Assessment Notes Treatment Notes Treatment Clinical Notes Section Notes 03/07/2024 Type 2 diabetes mellitus without complication (ICD-10 - E11.9) 03/07/2024 Acquired hypothyroidism (ICD-10 - E03.9) 03/07/2024 Iron deficiency anemia, unspecified iron deficiency anemia type (ICD-10 - D50.9) 03/07/2024 Peripheral edema (ICD-10 - R60.0) Plan Of Treatment Medication Medication Name Sig Start Date Stop Date Notes Levothyroxine Sodium 125 MCG 1 tab(s) Orally once a day FeroSul 325 (65 Fe) MG TAKE 1 TABLET BY MOUTH THREE TIMES DAILY metFORMIN HCl 500 MG 2 tab(s) orally 2 times a day Next Appt Details Follow Up: 6 Months, Reason: Progress Notes * ARSENIO CROCKER:1945 (80 yo F)Acc No.[id number]:03/07/2024 Progress Notes Patient: AYANNA BERMAN Provider: Cindy Coburn M.D. :1945 A ge:78 Y S ex:Female Date:03/07/2024 Address:[address] [place] [id number] Subjective: * Chief Complaints: * 1 . 6 Month Check Up. * HPI: E ndocrinology: 78 year old female presents with c/o Recent Blood Sugars P t here for 6 mo f/u on DM 2. c/o Hypothyroidism. C ardiology: c/o Blood Pressure Elevated P t here for 6 mo f/u on hypertension, states she is doing well and does not have any concerns. c/o Hyperlipidemia p t is fasting today. * ROS: D ERMATOLOGY: no R lake. n o H davide. G ASTROENTEROLOGY: no N ausea. n o V omiting. U ROLOGY: no D ifficulty urinating. n o B lood in urine. * Medical History: H ypothyroidism, Hyperlipidemia, Type 2 Diabetes, Dx: 04/2013, Low Back Pain, Lumbar Degenerative Disc Disease, CT scan 2016, Iron Deficiency Anemia. * Surgical History: L aproscopic cholecystectomy 02/2017, Bilateral Cataract Removal 08/2020, Cyst Removal off mid back- Dr. Rodriguez 01/2021. * Hospitalization/Major Diagno stic Procedure: D enies Past Hospitalization. * Family History: F ather: , diagnosed with Cancer. M other: , diagnosed with Diabetes, Heart Disease. S iblings: alive, diagnosed with Cancer. 1 sister(s) - healthy. . * Social History: C URRENT TOBACCO USE S moking Status: P atient does NOT smoke, F ormer Smoker:?No. * Medications: T aking Diclofenac Sodium 1 % Gel as directed applied topically 4 times a day , Taking Centrum Silver - Tablet 1 tab(s) orally once a day , Taking OS-VIOLETA 500 1250 MG TABLET 1 TAB(S) ORALLY 3 TIMES A DAY , Taking PreserVision AREDS 2 - Capsule 1 cap(s) orally once a day , Taking Potassium Chloride ER 10 MEQ Capsule Extended Release TAKE 1 CAPSULE BY MOUTH ONCE DAILY , Taking FeroSul 325 (65 Fe) MG Tablet TAKE 1 TABLET BY MOUTH THREE TIMES DAILY , Taking Omeprazole 40 MG Capsule Delayed Release 1 cap(s) orally once a day , Taking metFORMIN HCl 500 MG Tablet 2 tab(s) orally 2 times a day , Taking Simvastatin 40 MG Tablet 1 tab(s) orally once a day (at bedtime) , Taking Levothyroxine Sodium 125 MCG Tablet 1 tab(s) Orally once a day , Discontinued Celecoxib 200 MG Capsule 1 cap(s) orally once a day , Medication List reviewed and reconciled with the patient * Allergies: N aproxen. Objective: * Vitals: W t:108, Temp:97.8, BP:122/80, HR:72, Nurse:jack, Ht: 65.50, BMI:17.70. * Examination: G eneral Examination: General Appearance: N AD. H eart: R SR. L ungs:?clear to auscultation. E xtremities: 1 + bilateral ankle edema. Assessment: * Assessment: 1. T ype 2 diabetes mellitus without complication - E11.9 (Primary) 2 . A cquired hypothyroidism - E03.9 3 . I loyda deficiency anemia, unspecified iron deficiency anemia type - D50.9 4 . P eripheral edema - R60.0 Plan: * Treatment: Value Reference Range A /G Ratio 1.8 1.1-2.5 - mg/dL * A lbumin 4.2 3.5-5.3 - g/dL * A lkaline Phosphatase 73 35-121 - IU/L * A LT (SGPT) 21 <5-47 - IU/L * A ST (SGOT) 19 <5-40 - IU/L * B ilirubin, Total 0.4 <0.2-1.2 - mg/dL * B UN 12 8-23 - mg/dL * C alcium 9.6 8.6-10.4 - mg/dL * C hloride 96 L 97-108 - mEq/L * C O2 29 22-32 - mEq/L * C reatinine 0.61 0.50-1.00 - mg/dL * G lucose 127 H 65-99 - mg/dL * P otassium 4.1 3.5-5.3 - mEq/L * S odium 137 135-145 - mEq/L * P rotein 6.5 6.0-8.3 - g/dL * e GFR by Creatinine 90 >59 - mL/min/1.73m2 * Yasmeen [place] 03/09/2024 10:27 :14 AM > , See phone encounter ?LAB: Glucose (In-House) (Collection Date & Time - 03/07/2024)?160* Value Reference Range b lood glucose 160 74 - 106 mg/dL * Gregoria Gonsales 03/07/2024 9 :50:57 AM > Yasmeen [place] 03/09/2024 10:28:18 AM >See phone encounter ?LAB: Glycohemoglobin A1c (in house) (Collection Date & Time - 03/07/2024)? 7.9* Value Reference Range g lycohemoglobin 7.9% 5 - 6.5 % * Gregoria Gonsales 03/07/2024 9 :53:54 AM > Yasmeen [place] 03/09/2024 10:28:18 AM >See phone encounter 2.?Acquired hypothyroidism? Continue Levothyroxine Sodium Tablet, 125 MCG, 1 tab(s), Orally, once a day.?LAB: P-T4 Free (thyroxine) (Collection Date & Time - 03/07/2024 08:45 AM)? Normal* Value Reference Range T hyroxine Free (free T4) 1.54 0.86-1.76 - ng/d L * Yasmeen [place] 03/09/2024 10:28 :18 AM >See phone encounter ?LAB: P-TSH (Collection Date & Time - 03/07/2024 08:45 AM)?Normal* Value Reference Range T SH 3.50 0.43-5.25 - mU/L * Yasmeen [place] 03/09/2024 10:28 :18 AM >See phone encounter 3.?Iron deficiency anemia, unspecified iron deficiency anemia type? Continue FeroSul Tablet, 325 (65 Fe) MG, TAKE 1 TABLET BY MOUTH THREE TIMES DAILY.?LAB: P-Iron (Collection Date & Time - 03/07/2024 08:45 AM)?Normal* Value Reference Range I loyda 57 37-145 - ug/dL * Yasmeen [place] 03/09/2024 10:28 :18 AM >See phone encounter ?LAB: CBC Venipuncture (in house) (Collection Date & Time - 03/07/2024)* Value Reference Range w bc 7.6 3.5 - 10 * l ymph 21.5 15 - 50 * m id 5.8 2 - 15 * g ran 72.7 35 - 80 * r bc 4.20 3.5 - 5.5 * h gb 12.2 11.5 - 16.5 * h ct 37.5 35 - 55 * m cv 89.4 75 - 100 * m ch 29.1 25 - 35 * m chc 32.6 31 - 38 * p latlet 312 100 - 400 * Gregoria Gonsales 03/07/2024 9 :52:49 AM > 4.?Peripheral edema?LAB: P-Comprehensive Metabolic Panel (CMP) (Collection Date & Time - 03/07/2024 08:45 AM)?cl 96, gluc 127* Value Reference Range A /G Ratio 1.8 1.1-2.5 - mg/dL * A lbumin 4.2 3.5-5.3 - g/dL * A lkaline Phosphatase 73 35-121 - IU/L * A LT (SGPT) 21 <5-47 - IU/L * A ST (SGOT) 19 <5-40 - IU/L * B ilirubin, Total 0.4 <0.2-1.2 - mg/dL * B UN 12 8-23 - mg/dL * C alcium 9.6 8.6-10.4 - mg/dL * C hloride 96 L 97-108 - mEq/L * C O2 29 22-32 - mEq/L * C reatinine 0.61 0.50-1.00 - mg/dL * G lucose 127 H 65-99 - mg/dL * P otassium 4.1 3.5-5.3 - mEq/L * S odium 137 135-145 - mEq/L * P rotein 6.5 6.0-8.3 - g/dL * e GFR by Creatinine 90 >59 - mL/min/1.73m2 * Yasmeen [place] 03/09/2024 10:27 :14 AM > , See phone encounter * Procedure Codes: G 2211 Complex e/[place], [address] GLUCOSE TEST, 76455 GLYCATED HEMOGLOBIN TEST, Modifiers: QW , 32581 CBC WITH AUTO DIFF * Follow Up: 6 Months * Images: Billing Information: * Visit Code: 22388 Office Visit, Est Pt., Level 4. * Procedure Codes: G2211 Complex e/[place]. [address] GLUCOSE TEST. 90451 GLYCATED HEMOGLOBIN TEST. Modifiers: QW 23837 CBC WITH AUTO DIFF. * Electronic signature of Susana Coburn MD on 08/31/2025 at 08:44 AM EST Sign off status: Pending * Provider: Cindy Coburn M.D. Date: 0 03/07/2024 Generated for Yosef anderson/Alon/eTransmitting on: 1 10/31/2024 08:44 AM EST History and Physical Notes * HPI (History of Present Illness) Category Sub-Category Detail Notes Category Not es Endocrinology Recent Blood Sugars Pt here for 6 mo f/u on DM 2 Hypothyroidism Cardiology Blood Pressure Elevated Pt here for 6 mo f/u on hypertension, states she is doing well and does not have any concerns Hyperlipidemia pt is fasting today Examination Category Sub-Category Detail Notes Category Not es General Examination Heart: RSR Lungs: clear to auscultatio n Extremities: 1+ bilateral ankle e mable General Appearance: NAD
--- OUTSIDE RECORDS SUMMARY | 2024-06-09 04:30 | XMS_ITS ---
[facility] [address] [facility] [address] [place] [id number] Care Team Providers Care Software Quality Analyst Name Role Phone Lalo Coburn Primary Care Provider Allergies Allergen (clinical drug ingredient) Drug/Non Drug Allergy documented on EMR Reaction Allergy Type Onset Date Status naproxen Naproxen Unknown Drug Allergy Active Results Component Value Reference Range Notes Glucose (In-House) Reviewed date:06/09/2024 11:14:45 AM Interpretation: Performing Lab: Notes/Report: blood glucose 133 74 - 106 mg/dL Glycohemoglobin A1c (in hous e) Reviewed date:06/09/2024 11:14:54 AM Interpretation: Performing Lab: Notes/Report: glycohemoglobin 7.1% 5 - 6.5 % REASON FOR VISIT 3 month fasting Medications Medication SIG (Take, Route, Frequency, Duration) Notes Start Date End Date Status Omeprazole 40 MG 1 cap(s) orally once a day; Duration: 90 days Active Centrum Silver - 1 tab(s) orally once a day Active OS-VIOLETA 500 1250 MG 1 TAB(S) ORALLY 3 TI MES A DAY Active PreserVision AREDS 2 - 1 cap(s) orally o nce a day; Duration: 30 day(s) Active Simvastatin 40 MG 1 tab(s) orally once a day (at bedtime); Duration: 30 days Active Diclofenac Sodium 1 % as directed applie d topically 4 times a day Active Potassium Chloride ER 10 MEQ TAKE 1 CAPS ULE BY MOUTH ONCE DAILY; Duration: 30 days Active FeroSul 325 (65 Fe) MG TAKE 1 TABLET BY MOUTH THREE TIMES DAILY; Duration: 30 days Active metFORMIN HCl 500 MG 2 tab(s) orally 2 t imes a day Active Levothyroxine Sodium 125 MCG 1 tab(s) Or ally once a day Active Vital Signs Blood pressure systolic 112 mm Hg 06/09/20 24 Blood pressure diastolic 78 mm Hg 024 Heart Rate 70 /min 06/09/2024 Height 65.50 in 06/09/2024 Weight 109.4 lbs 06/09/2024 BMI 17.93 kg/m2 06/09/2024 Encounters Encounter Location Date Provider Diagnosis [facility] [address] [place] [phone] 06/09/2024 Lalo Coburn Type 2 diabetes estrellita itus without complication E11.9 Assessments Encounter Date Diagnosis (ICD Code) Assessment Notes Treatment Notes Treatment Clinical Notes Section Notes 06/09/2024 Type 2 diabetes mellitus without complication (ICD-10 - E11.9) Plan Of Treatment Medication Medication Name Sig Start Date Stop Date Notes metFORMIN HCl 500 MG 2 tab(s) orally 2 times a day Next Appt Details Follow Up: as scheduled,and prn, Reason: Progress Notes * AYANNA CROCKERDOB:1945 (80 yo F)Acc No.[id number]:06/09/2024 Progress Notes Patient: AYANNA BERMAN Provider: Cindy Coburn M.D. :1945 A ge:78 Y S ex:Female Date:06/09/2024 Address:[address] [place], [place] [phone] Subjective: * Chief Complaints: * 1 . 3 month fasting. * HPI: E ndocrinology: 78 year old female presents with c/o Recent Blood Sugars P t here for 3 mo f/u on DM 2, pt states she is fasting today for labs. C ardiology: c/o Leg Edema P t complains of bilateral leg and ankle swelling. * ROS: D ERMATOLOGY: no [place]. [...] cap(s) orally once a day , Taking Omeprazole 40 MG Capsule Delayed Release 1 cap(s) orally once a day , Taking Simvastatin 40 MG Tablet 1 tab(s) orally once a day (at bedtime) , Taking Levothyroxine Sodium 125 MCG Tablet 1 tab(s) Orally once a day , Taking Potassium Chloride ER 10 MEQ Capsule Extended Release TAKE 1 CAPSULE BY MOUTH ONCE DAILY , Taking FeroSul 325 (65 Fe) MG Tablet TAKE 1 TABLET BY MOUTH THREE TIMES DAILY , Taking metFORMIN HCl 500 MG Tablet 2 tab(s) orally 2 times a day , Medication List reviewed and reconciled with the patient * Allergies: N aproxen. Objective: * Vitals: W t:109.4, Temp:98.0, BP:112/78, HR:70, Nurse:jack, Ht: 65.50, BMI:17.93. * Examination: G eneral Examination: General Appearance: N AD. H eart: R SR. L ungs:?clear to auscultation. E xtremities: t race left a nkle edema. ? Assessment: * Assessment: 1. T ype 2 diabetes mellitus without complication - E11.9 (Primary) Plan: * Treatment: Value Reference Range b lood glucose 133 74 - 106 mg/dL * Mony Garcia 06/09/2024 10:11:0 1 AM > , Provider reviewed results while patient in office. ?LAB: Glycohemoglobin A1c (in house) (Collection Date & Time - 06/09/2024)* Value Reference Range g lycohemoglobin 7.1% 5 - 6.5 % * Mony Garcia 06/09/2024 10:12:5 3 AM > , Provider reviewed results while patient in office. * Procedure Codes: G 2211 Complex e/[place], [address] CAPILLARY BLOOD DRAW, 86614 GLUCOSE TEST, 48448 GLYCATED HEMOGLOBIN TEST, Modifiers: QW * Follow Up: a s scheduled,and prn * Images: Billing Information: * Visit Code: 77410 Office Visit, Est Pt., Level 3. * Procedure Codes: G2211 Complex e/[place]. [address] CAPILLARY BLOOD DRAW. 03028 GLUCOSE TEST. 25539 GLYCATED HEMOGLOBIN TEST. Modifiers: QW * Electronic signature of Susana Coburn MD on 08/31/2025 at 08:45 AM EST Sign off status: Pending * Provider: Cindy Coburn M.D. Date: 0 06/09/2024 Generated for Yosef anderson/Alon/Rogersmitting on: 1 10/31/2024 08:45 AM EST History and Physical Notes * HPI (History of Present Illness) Category Sub-Category Detail Notes Category Not es Endocrinology Recent Blood Sugars Pt here for 3 mo f/u on DM 2, pt states she is fasting today for labs Cardiology Leg Edema Pt complains of bilateral leg and ankle swelling Examination Category Sub-Category Detail Notes Category Not es General Examination Heart: RSR Lungs: clear to auscultatio n Extremities: trace left ankle lindsay ma General Appearance: NAD
--- OUTSIDE RECORDS SUMMARY | 2024-09-05 08:30 | XMS_ITS ---
Author Organization [facility] Address [address] [facility] [address] [place] [phone] Care Team Providers Care Conveyor Attendant Name Role Phone Lalo Coburn Primary Care Provider [phone] Allergies Allergen (clinical drug ingredient) Drug/Non Drug Allergy documented on EMR Reaction Allergy Type Onset Date Status naproxen Naproxen Unknown Drug Allergy Active REASON FOR VISIT 6 month check Medications Medication SIG (Take, Route, Frequency, Duration) Notes Start Date End Date Status OS-VIOLETA 500 1250 MG 1 TAB(S) ORALLY 3 TI MES A DAY Active PreserVision AREDS 2 - 1 cap(s) orally o nce a day; Duration: 30 day(s) Active Levothyroxine Sodium 125 MCG 1 tab(s) Or ally once a day Active Potassium Chloride ER 10 MEQ TAKE 1 CAPS ULE BY MOUTH ONCE DAILY; Duration: 30 days Active Centrum Silver - 1 tab(s) orally once a day Active Omeprazole 40 MG 1 cap(s) orally once a day; Duration: 90 days Active FeroSul 325 (65 Fe) MG TAKE 1 TABLET BY MOUTH THREE TIMES DAILY; Duration: 30 days Active metFORMIN HCl 500 MG 2 tab(s) orally 2 t imes a day; Duration: 30 days Active Simvastatin 40 MG 1 tab(s) orally once a day (at bedtime); Duration: 30 days Active Diclofenac Sodium 1 % as directed applie d topically 4 times a day Active Vital Signs Blood pressure systolic 114 mm Hg 09/05/20 24 Blood pressure diastolic 70 mm Hg 024 Heart Rate 62 /min 09/05/2024 Height 65.50 in 09/05/2024 Weight 109.2 lbs 09/05/2024 BMI 17.89 kg/m2 09/05/2024 Encounters Encounter Location Date Provider Diagnosis [facility] [address] [place] [phone] 09/05/2024 [place] Other fatigue R53.83 and Snoring R06.83 Assessments Encounter Date Diagnosis (ICD Code) Assessment Notes Treatment Notes Treatment Clinical Notes Section Notes 09/05/2024 Other fatigue (ICD-10 - R53.83) 09/05/2024 Snoring (ICD-10 - R06.83) Plan Of Treatment Pending Test Test Name Order Date sleep study 09/05/2024 Next Appt Details Follow Up: via phone to repo rt test results, 6 Months, Reason: Progress Notes * AYANNA CROCKERDOB:1945 (80 yo F)Acc No.[id number]:09/05/2024 Progress Notes Patient: AYANNA BERMAN Provider: Cindy Coburn M.D. :1945 A ge:79 Y S ex:Female Date:09/05/2024 Address:[address] [place], [place] [address] [address] [phone] Subjective: * Chief Complaints: * 1 . 6 month check. * HPI: E ndocrinology: 79 year old female presents with c/o Recent Blood Sugars P t here to f/u on DM 2. c/o Hypothyroidism P t here to f/u, pt states that she is doing well and does not have any concerns. C ardiology: c/o Hyperlipidemia P t is not fasting today. * ROS: D ERMATOLOGY: no [...] URRENT TOBACCO USE S moking Status: P atchikis does NOT smoke, F yu Smoker:?No. * Medications: T aking Diclofenac Sodium 1 % Gel as directed applied topically 4 times a day , Taking Centrum Silver - Tablet 1 tab(s) orally once a day , Taking OS-VIOLETA 500 1250 MG TABLET 1 TAB(S) ORALLY 3 TIMES A DAY , Taking PreserVision AREDS 2 - Capsule 1 cap(s) orally once a day , Taking Levothyroxine Sodium 125 MCG Tablet 1 tab(s) Orally once a day , Taking Potassium Chloride ER 10 MEQ Capsule Extended Release TAKE 1 CAPSULE BY MOUTH ONCE DAILY , Taking Omeprazole 40 MG Capsule Delayed Release 1 cap(s) orally once a day , Taking FeroSul 325 (65 Fe) MG Tablet TAKE 1 TABLET BY MOUTH THREE TIMES DAILY , Taking metFORMIN HCl 500 MG Tablet 2 tab(s) orally 2 times a day , Taking Simvastatin 40 MG Tablet 1 tab(s) orally once a day (at bedtime) , Medication List reviewed and reconciled with the patient * Allergies: N aproxen. Objective: * Vitals: W t:109.2, Temp:98.0, BP:114/70, HR:62, Nurse:jack, Ht: 65.50, BMI:17.89. * Examination: G eneral Examination: General Appearance: N AD. H eart: R SR. L ungs:?clear to auscultation. E xtremities: t race left a nkle edema. ? Assessment: * Assessment: 1. O ther fatigue - R53.83 (Primary) 2 . S noring - R06.83 Plan: * Treatment: 2.?Snoring?Imaging: sleep study* Emilee Pagan 09/05/2024 1:57 :00 PM > faxed to Shonda Velásquez * Procedure Codes: G 2211 Complex e/m visit add on * Follow Up: v ia phone to report test results, 6 Months * Images: Billing Information: * Visit Code: 11176 Office Visit, Est Pt., Level 3. * Procedure Codes: G2211 Complex e/m visit add on. * Electronic signature of Susana Coburn MD on 08/31/2025 at 08:45 AM EST Sign off status: Pending * Provider: Cindy Coburn M.D. Date: 11/05/2023 Generated for Yosef anderson/Alon/Aníbalitting on: 10/31/2024 08:45 AM EST History and Physical Notes * HPI (History of Present Illness) Category Sub-Category Detail Notes Category Not es Endocrinology Recent Blood Sugars Pt here to f/u on DM 2 Hypothyroidism Pt here to f/u, pt s tates that she is doing well and does not have any concerns Cardiology Hyperlipidemia Pt is not fasting today Examination Category Sub-Category Detail Notes Category Not es General Examination Heart: RSR Lungs: clear to auscultatio n Extremities: trace left ankle lindsay ma General Appearance: NAD
--- OUTSIDE RECORDS SUMMARY | 2025-01-30 05:00 | XMS_ITS ---
Author Organization [facility] Address [address] [facility] [address] [place] [id number] Care Team Providers Care Anthropology And Archeology Instructor Name Role Phone Canelo Cobrunian Primary Care Provider Allergies Allergen (clinical drug ingredient) Drug/Non Drug Allergy documented on EMR Reaction Allergy Type Onset Date Status naproxen Naproxen Unknown Drug Allergy Active Results Component Value Reference Range Notes CBC Venipuncture (in house) Reviewed date:02/01/2025 09:01:58 AM Interpretation: Normal Performing Lab: Notes/Report: Normal wbc 6.2 3.5 - 10 lymph 20.6% 15 - 50 mid 21.2% 2 - 15 gran 58.2% 35 - 80 rbc 4.09 3.5 - 5.5 hgb 13.1 11.5 - 16.5 hct 37.3 35 - 55 mcv 91.2 75 - 100 mch 31.9 25 - 35 mchc 35.0 31 - 38 platlet 328 100 - 400 P-Comprehensive Metabolic Pa minor (CMP) Reviewed date:02/01/2025 09:01:58 AM Interpretation:cl 96, glu 100 Performing Lab: Notes/Report: Test performed by [facility] [address] [place] [address] , [address], [place] [address] Alek Osorio MD, House Fellow CLIA: [id number] Sodium 136 135-145 mmol/L Potassium 4.9 3.5-5.3 mmol/L Chloride 96 97-108 mmol/L CO2 29 22-32 mmol/L Glucose 100 65-99 mg/dL BUN 10 8-23 mg/dL Creatinine 0.55 0.50-1.00 mg/dL Calcium 9.9 8.6-10.4 mg/dL eGFR by Creatinine 92 >59 mL/min/1.73m2 Protein 6.6 6.0-8.3 g/dL Albumin 4.4 3.5-5.3 g/dL Alkaline Phosphatase 67 35-121 IU/L ALT (SGPT) 19 <5-47 IU/L AST (SGOT) 18 <5-40 IU/L Bilirubin, Total 0.3 <0.2-1.2 mg/dL A/G Ratio 2.0 1.1-2.5 P-T4 Free (thyroxine) Reviewed date:02/01/2025 09:01:58 AM Interpretation: Normal Performing Lab: Notes/Report: Test performed by [facility] [address] [place] [address] , [place] [address] Alek Osorio MD, House Fellow CLIA: [id number] Thyroxine Free (free T4) 1.66 0.86-1.76 ng/dL P-Hemoglobin A1C Reviewed date:02/01/2025 09:01:58 AM Interpretation:7.9 Performing Lab: Notes/Report: Test performed by [facility] [address] [place] [address] , [address], [place] [address] Alek Osorio MD, House Fellow CLIA: [id number] Hemoglobin A1C 7.9 <5.7 % The following HbA1c ranges recommended by the [place] [employer] (ADA) may be used as an aid in the diagnosis of diabetes mellitus. HbA1c Suggested Diagnosis >=6.5% Diabetic 5.7% - 6.4% Pre-Diabetic <5.7% Non-Diabetic P-Iron Reviewed date:02/01/2025 09:01:58 AM Interpretation: Normal Performing Lab: Notes/Report: Test performed by [facility] [address] [place] [address] , [address], [place] [address] Alek Osorio MD, House Fellow CLIA: [id number] Iron 63 37-145 ug/dL P-Lipid Panel Reviewed date:02/01/2025 09:01:59 AM Interpretation: Normal Performing Lab: Notes/Report: Test performed by [facility] [address] [place] [address] [address], [place] [address] Alek Osorio MD, House Fellow CLIA: [id number] Cholesterol 177 <200 mg/dL Triglycerides 72 <150 mg/dL HDL Cholesterol 75 >39 mg/dL Cholesterol / HDL Ratio 2.36 0.00-4.44 Ratio Non-HDL Cholesterol 102 <130 mg/dL LDL Cholesterol (Calculation) 88 <130 mg/dL LDL Cholesterol Levels* Less than 100 mg/dL Optimal 100 to 129 mg/dL Near Optimal/ Above Optimal 130 to 159 mg/dL Borderline High 160 to 189 mg/dL High 190 mg/dL and above Very High * Categories as recommended by the 2004 ATPIII guidelines LDL/HDL Ratio 1.2 <3.3 Ratio LDL Cholesterol Patient History Test Date: 01/30/2025 LDL Results: 88 Units: mg/dL % Change: - P-TSH Reviewed date:02/01/2025 09:01:59 AM Interpretation: Normal Performing Lab: Notes/Report: Test performed by [facility] [address] [place], [place] [address] [place] , [facility], [place] [address] Alek Osorio MD, House Fellow CLIA: [id number] TSH 2.68 0.43-5.25 mU/L P-Microalbumin/Creatinine, R andom Urine Sample Reviewed date:02/01/2025 09:01:59 AM Interpretation:ablum/creat 54 Performing Lab: Notes/Report: Test performed by [facility] [address] [place] [address] , [address], [place] [address] Alek Osorio MD, House Fellow CLIA: [id number] Albumin/Creatinine Ratio, Urine 54 0-30 ug/m g Microalbumin, Urine, Random 2.3 Creatinine, Urine 42.9 Estimated Average Glucose Reviewed date:02/01/2025 09:01:59 AM Interpretation:180 Performing Lab: Notes/Report: Test performed by [facility] [address] [place] [address] , [address], [place] [address] Alek Osorio MD, House Fellow CLIA: [id number] Estimated Average Glucose (eAG) 180 Estimated Average Glucose (eAG) is calculated using the equation eAG = (28.7 x HbA1c) - 46.7 based on the guidelines established by the ADA. If the patient has certain diseases including kidney disease, sickle cell anemia, thalassemia, or is taking medications such as dapsone, erythropoietin, or iron, eAG should not be evaluated. REASON FOR VISIT 6 month f/u Medications Medication SIG (Take, Route, Frequency, Duration) Notes Start Date End Date Status Levothyroxine Sodium 125 MCG 1 tab(s) Or ally once a day Active Centrum Silver - 1 tab(s) orally once a day Active FeroSul 325 (65 Fe) MG TAKE 1 TABLET BY MOUTH THREE TIMES DAILY Active Diclofenac Sodium 1 % as directed applie d topically 4 times a day Active Simvastatin 40 MG 1 tab(s) orally once a day (at bedtime) Active Omeprazole 40 MG 1 cap(s) orally once a day; Duration: 90 days Active metFORMIN HCl 500 MG TAKE 2 TABLETS BY M OUTH TWICE DAILY Active PreserVision AREDS 2 - 1 cap(s) orally o nce a day; Duration: 30 day(s) Active OS-VIOLETA 500 1250 MG 1 TAB(S) ORALLY 3 TI MES A DAY Active Potassium Chloride ER 10 MEQ TAKE 1 CAPS ULE BY MOUTH ONCE DAILY; Duration: 30 Active Vital Signs Blood pressure systolic 114 mm Hg 01/31/20 25 Blood pressure diastolic 72 mm Hg 025 Heart Rate 79 /min 01/30/2025 Height 65.50 in 01/30/2025 Weight 108.2 lbs 01/30/2025 BMI 17.73 kg/m2 01/30/2025 Encounters Encounter Location Date Provider Diagnosis [facility] [address] [place] [id number] 01/30/2025 Lalo Coburn Type 2 diabetes estrellita itus without complication E11.9 ; Hyperlipidemia, unspecified hyperlipidemia E78.5 ; Acquired hypothyroidism E03.9 ; Iron deficiency anemia, unspecified iron deficiency anemia type D50.9 and BMI < 18.5 Z68.1 Assessments Encounter Date Diagnosis (ICD Code) Assessment Notes Treatment Notes Treatment Clinical Notes Section Notes 01/30/2025 Type 2 diabetes mellitus without complication (ICD-10 - E11.9) 01/30/2025 Hyperlipidemia, unspecified hyperlipidemia (ICD-10 - E78.5) 01/30/2025 Acquired hypothyroidism (ICD-10 - E03.9) 01/30/2025 Iron deficiency anemia, unspecified iron deficiency anemia type (ICD-10 - D50.9) 01/30/2025 BMI < 18.5 (ICD-10 - Z68.1) Plan Of Treatment Medication Medication Name Sig Start Date Stop Date Notes Levothyroxine Sodium 125 MCG 1 tab(s) Orally once a day FeroSul 325 (65 Fe) MG TAKE 1 TABLET BY MOUTH THREE TIMES DAILY Simvastatin 40 MG 1 tab(s) orally once a day (at bedtime) metFORMIN HCl 500 MG TAKE 2 TABLETS BY M OUTH TWICE DAILY Next Appt Details Follow Up: 6 Months, Reason: Progress Notes * AYANNA CROCKERDOB:1945 (80 yo F)Acc No.[id number]:01/30/2025 Progress Notes Patient: AYANNA BERMAN Provider: Cindy Coburn M.D. :1945 A ge:79 Y S ex:Female Date:01/30/2025 Address[facility] [address] [id number] Subjective: * Chief Complaints: * 1 . 6 month f/u. * HPI: E ndocrinology: 79 year old female presents with c/o Hypothyroidism P t here for 6 mo f/u. Pt states she is doing well and does not have any concerns. C ardiology: c/o Hyperlipidemia P t is fasting today. * ROS: D [...] once a day (at bedtime) , Taking FeroSul 325 (65 Fe) MG Tablet TAKE 1 TABLET BY MOUTH THREE TIMES DAILY , Taking Potassium Chloride ER 10 MEQ Capsule Extended Release TAKE 1 CAPSULE BY MOUTH ONCE DAILY , Taking Levothyroxine Sodium 125 MCG Tablet 1 tab(s) Orally once a day , Taking metFORMIN HCl 500 MG Tablet TAKE 2 TABLETS BY MOUTH TWICE DAILY , Medication List reviewed and reconciled with the patient * Allergies: N aproxen. Objective: * Vitals: W t:108.2, Temp:98.0, BP:114/72, HR:79, Nurse:jack, Ht: 65.50, BMI:17.73. * Examination: G eneral Examination: General Appearance: N AD. H eart: R SR. L ungs:?clear to auscultation. E xtremities: t race left a nkle edema. ? Assessment: * Assessment: 1. T ype 2 diabetes mellitus without complication - E11.9 (Primary) 2 . H yperlipidemia, unspecified hyperlipidemia - E78.5 3 . A cquired hypothyroidism - E03.9 4 . I loyda deficiency anemia, unspecified iron deficiency anemia type - D50.9 5 . B [place] < 18.5 - Z68.1 Plan: * Treatment: Value Reference Range A /G Ratio 2.0 1.1-2.5 - * A lbumin 4.4 3.5-5.3 - g/dL * A lkaline Phosphatase 67 35-121 - IU/L * A LT (SGPT) 19 <5-47 - IU/L * A ST (SGOT) 18 <5-40 - IU/L * B ilirubin, Total 0.3 <0.2-1.2 - mg/dL * B UN 10 8-23 - mg/dL * C alcium 9.9 8.6-10.4 - mg/dL * C hloride 96 L 97-108 - mmol/L * C O2 29 22-32 - mmol/L * C reatinine 0.55 0.50-1.00 - mg/dL * G lucose 100 H 65-99 - mg/dL * P otassium 4.9 3.5-5.3 - mmol/L * S odium 136 135-145 - mmol/L * P rotein 6.6 6.0-8.3 - g/dL * e GFR by Creatinine 92 >59 - mL/min/1.73m2 * Bryanna Penn 02/01/2025 09: 01:50 AM > See phone encounter ?LAB: P-Hemoglobin A1C (Collection Date & Time - 01/30/2025 08:40 AM)?7.9* Value Reference Range H emoglobin A1C 7.9 H <5.7 - % * Bryanna Penn 02/01/2025 09: 01:50 AM > See phone encounter ?LAB: P-Microalbumin/Creatinine, Random Urine Sample (Collection Date & Time - 01/30/2025 08:40 AM)?ablum/creat 54* Value Reference Range A lbumin/Creatinine Ratio, Urine 54 H 0-30 - ug /mg * C reatinine, Urine 42.9 - mg/dL * M icroalbumin, Urine, Random 2.3 - mg/dL * Bryanna Penn 02/01/2025 09: 01:50 AM > See phone encounter 2.?Hyperlipidemia, unspecified hyperlipidemia? Continue Simvastatin Tablet, 40 MG, 1 tab(s), orally, once a day (at bedtime).?LAB: P-Comprehensive Metabolic Panel (CMP) (Collection Date & Time - 01/30/2025 08:40 AM)?cl 96, glu 100* Value Reference Range A /G Ratio 2.0 1.1-2.5 - * A lbumin 4.4 3.5-5.3 - g/dL * A lkaline Phosphatase 67 35-121 - IU/L * A LT (SGPT) 19 <5-47 - IU/L * A ST (SGOT) 18 <5-40 - IU/L * B ilirubin, Total 0.3 <0.2-1.2 - mg/dL * B UN 10 8-23 - mg/dL * C alcium 9.9 8.6-10.4 - mg/dL * C hloride 96 L 97-108 - mmol/L * C O2 29 22-32 - mmol/L * C reatinine 0.55 0.50-1.00 - mg/dL * G lucose 100 H 65-99 - mg/dL * P otassium 4.9 3.5-5.3 - mmol/L * S odium 136 135-145 - mmol/L * P rotein 6.6 6.0-8.3 - g/dL * e GFR by Creatinine 92 >59 - mL/min/1.73m2 * Bryanna Penn 02/01/2025 09: 01:50 AM > See phone encounter ?LAB: P-Lipid Panel (Collection Date & Time - 01/30/2025 08:40 AM)?Normal* Value Reference Range C holesterol / HDL Ratio 2.36 0.00-4.44 - Ratio * C holesterol 177 <200 - mg/dL * H DL Cholesterol 75 >39 - mg/dL * L DL Cholesterol (Calculation) 88 <130 - mg/d L * L DL/HDL Ratio 1.2 <3.3 - Ratio * N on-HDL Cholesterol 102 <130 - mg/dL * T riglycerides 72 <150 - mg/dL * Bryanna Penn 02/01/2025 09: 01:50 AM > See phone encounter 3.?Acquired hypothyroidism? Continue Levothyroxine Sodium Tablet, 125 MCG, 1 tab(s), Orally, once a day.?LAB: P-T4 Free (thyroxine) (Collection Date & Time - 01/30/2025 08:40 AM)? Normal* Value Reference Range T hyroxine Free (free T4) 1.66 0.86-1.76 - ng/d L * Bryanna Penn 02/01/2025 09: 01:50 AM > See phone encounter ?LAB: P-TSH (Collection Date & Time - 01/30/2025 08:40 AM)?Normal* Value Reference Range T SH 2.68 0.43-5.25 - mU/L * Bryanna Penn 02/01/2025 09: 01:50 AM > See phone encounter 4.?Iron deficiency anemia, unspecified iron deficiency anemia type? Continue FeroSul Tablet, 325 (65 Fe) MG, TAKE 1 TABLET BY MOUTH THREE TIMES DAILY.?LAB: P-Iron (Collection Date & Time - 01/30/2025 08:40 AM)?Normal* Value Reference Range I loyda 63 37-145 - ug/dL * Bryanna Penn 02/01/2025 09: 01:50 AM > See phone encounter ?LAB: CBC Venipuncture (in house) (Collection Date & Time - 01/31/2025)? Normal* Value Reference Range w bc 6.2 3.5 - 10 * l ymph 20.6% 15 - 50 * m id 21.2% 2 - 15 * g ran 58.2% 35 - 80 * r bc 4.09 3.5 - 5.5 * h gb 13.1 11.5 - 16.5 * h ct 37.3 35 - 55 * m cv 91.2 75 - 100 * m ch 31.9 25 - 35 * m chc 35.0 31 - 38 * p latlet 328 100 - 400 * Mony Garcia 01/31/2025 9:43:17 AM > Bryanna Penn 02/01/2025 09:01:50 AM > See phone encounter * Labs: * L ab: Estimated Average Glucose (Collection Date & Time - 01/30/2025 08:40 AM) 1 80 Value Reference Range E stimated Average Glucose 180 - mg/dL * [facility], IT support 01/31/2025 06:20:07 : This order was created by the Interface. Bryanna Penn 02/01/2025 09:01:50 AM > See phone encounter * Procedure Codes: G 2211 Complex e/[place], [address] CBC WITH AUTO DIFF, 3051F HG A1C>EQUAL 7.0%<8.0%, G8752 MOST RECENT SYSTOLIC BP < 140MM HG, G8754 MOST RECENT DIASTOLIC BP < 90MM HG * Follow Up: 6 Months * Images: Billing Information: * Visit Code: 66759 Office Visit, Est Pt., Level 4. * Procedure Codes: G2211 Complex e/[place]. [address] CBC WITH AUTO DIFF. 3051F HG A1C>EQUAL 7.0%<8.0%. G8752 MOST RECENT SYSTOLIC BP < 140MM HG. G8754 MOST RECENT DIASTOLIC BP < 90MM HG. * Electronic signature of Susana Coburn MD on 08/31/2025 at 08:44 AM EST Sign off status: Pending * Provider: Cindy Coburn M.D. Date: 0 01/30/2025 Generated for Printi ng/Faxing/eTransmitting on: 1 10/31/2024 08:44 AM EST History and Physical Notes * HPI (History of Present Illness) Category Sub-Category Detail Notes Category Not es Endocrinology Hypothyroidism Pt here for 6 mo f/u. Pt states she is doing well and does not have any concerns Cardiology Hyperlipidemia Pt is fasting today Examination Category Sub-Category Detail Notes Category Not es General Examination Heart: RSR Lungs: clear to auscultatio n Extremities: trace left ankle lindsay ma General Appearance: NAD
--- OUTSIDE RECORDS SUMMARY | 2025-01-30 05:45 | XMS_ITS ---
Author Organization [facility] Address [facility] [address] [place] [id number] Care Team Providers Care Supervisor Assembly And Packing Name Role Phone Lalo Coburn Primary Care [...] Provider Diagnosis [facility] [address] [place] [phone] 01/30/2025 Lalo Coburn Plan Of Treatment No Information Progress Notes * AYANNA CROCKERDOB:1945 (80 yo F)Acc No.[id number]:01/30/2025 Progress Notes Patient: AYANNA BERMAN Provider: Cindy Coburn M.D. :1945 A ge:79 Y S ex:Female Date:01/30/2025 [facility] [id number] Subjective: * Chief Complaints: * 1 . [...] 0 01/30/2025 Generated for Yosef anderson/Alon/Brayan on: 10/31/2024 08:45 AM EST History and [...]
--- OUTSIDE RECORDS SUMMARY | 2025-08-02 05:00 | XMS_ITS ---
Author Organization [facility] Address [address] [place] [id number] Care Team Providers Care Attorney Lawyer Name Role Phone Lalo Coburn Primary Care Provider REASON FOR VISIT 6 months Encounters Encounter Location Date Provider Diagnosis [facility] [address] [place] [id number] 08/02/2025 Lalo Coburn Plan Of Treatment No Information Progress Notes * AYANNA CROCKERDOB:1945 (80 yo F)Acc No.[id number]:08/02/2025 Progress Notes Patient: AYANNA BERMAN Provider: Cindy Coburn M.D. :1945 A ge:80 Y S ex:Female Date:08/02/2025 Address:[address] [place], [id number] Subjective: * Chief Complaints: * 1 . 6 months. * Medical History: Objective: * Vitals: Assessment: Plan: * Treatment: * Images: Billing Information: * Visit Code: * Procedure Codes: * Electronic signature of Susana Coburn MD on 08/31/2025 at 08:44 AM EST Sign off status: Pending * Provider: Cindy Coburn M.D. Date: Generated for Yosef anderson/Alon/Brayan on: 10/31/2024 08:44 AM EST
--- OUTSIDE RECORDS SUMMARY | 2025-08-31 08:45 | XMS_ITS | Patient Health Record ---
[facility] [address] [facility] [address] [facility] [address] [place] [phone] Care Team Providers Care Mash Filter Cloth Changer Name Role Phone Lalo Coburn Primary Care [...] 100 Performing Lab: Notes/Report: Test performed by [facility], [email or web address] [address] [place] [address] , [address], [place] [address] Alek Osorio MD, Wheel Alignment Technician CLIA: [id number] Sodium 136 135-145 mmol/L Potassium 4.9 3.5-5.3 [...] Normal Performing Lab: Notes/Report: Test performed by [facility] [address] [place] [address] , [place] [address] Alek Osorio MD, Wheel Alignment Technician CLIA: [id number] Thyroxine Free (free T4) 1.66 0.86-1.76 ng/dL P-Hemoglobin A1C Reviewed date:02/01/2025 09:01:58 AM Interpretation:7.9 Performing Lab: Notes/Report: Test performed by [facility] [address] [place] [address] , [facility] [place] [address] Alek Osorio MD, Wheel Alignment Technician CLIA: [id number] Hemoglobin A1C 7.9 <5.7 % The following HbA1c ranges recommended by the [place] [employer] (ADA) may be used as an aid in the diagnosis of diabetes mellitus. HbA1c Suggested Diagnosis >=6.5% Diabetic 5.7% - 6.4% Pre-Diabetic <5.7% Non-Diabetic P-Iron Reviewed date:02/01/2025 09:01:58 AM Interpretation: Normal Performing Lab: Notes/Report: Test performed by [facility] [address] [place] [address] , [place] [address] Alek Osorio MD, Wheel Alignment Technician CLIA: [id number] Iron 63 37-145 ug/dL P-Lipid Panel Reviewed date:02/01/2025 09:01:59 AM Interpretation: Normal Performing Lab: Notes/Report: Test performed by [facility] [address] [place] [address] [address], [place] [address] Alek Osorio MD, Wheel Alignment Technician CLIA: [id number] Cholesterol 177 <200 mg/dL Triglycerides 72 <150 [...] Normal Performing Lab: Notes/Report: Test performed by [facility] [address] [place], [place] [address] [place] [address] Alek Osorio MD, Wheel Alignment Technician CLIA: [id number] TSH 2.68 0.43-5.25 mU/L P-Microalbumin/Creatinine, R andom Urine Sample Reviewed date:02/01/2025 09:01:59 AM Interpretation:ablum/creat 54 Performing Lab: Notes/Report: Test performed by [facility] [address] [place] [address] , [address], [place] [address] Alek Osorio MD, Wheel Alignment Technician CLIA: [id number] Albumin/Creatinine Ratio, Urine 54 0-30 ug/m g Microalbumin, Urine, Random 2.3 Creatinine, Urine 42.9 Estimated Average Glucose Reviewed date:02/01/2025 09:01:59 AM Interpretation:180 Performing Lab: Notes/Report: Test performed by [facility] [address] [facility] , [address], [place] [address] Alek Osorio MD, Wheel Alignment Technician CLIA: [id number] Estimated Average Glucose (eAG) 180 Estimated Average [...] Status Risk Notes Problem Low back pain (071235276) Low back pain (M54.5) Active confirmed Problem Arthropathy of lumbar facet joint (098293043) Lumbar facet arthropathy (M47.816) Active confirmed Problem Hypokalemia (38368401) History of hypokalemia (Z86.39) Active confirmed Problem Chronic pain (95680041) Other chronic pain (G89.29) Active confirmed Problem Gastroparesis (568611034) Gastroparesis (K31.84) Active confirmed Problem Degeneration of lumbar intervertebral disc (12127223) Lumbar degenerative disc disease (M51.36) Active confirmed Problem Type II diabetes mellitus without complication (361530087) Type 2 diabetes mellitus without complication (E11.9) Active confirmed Problem Acquired hypothyroidism (750958964) Acquired hypothyroidism (E03.9) Active confirmed Problem Hyperlipidemia (58138005) Hyperlipidemia, unspecified hyperlipidemia (E78.5) Active confirmed Problem Gastroesophageal reflux disease (531309656) Gastroesophageal reflux disease, esophagitis presence not specified (K21.9) Active confirmed Problem Iron deficiency anemia due to chronic blood loss (008995462) Iron deficiency anemia due to chronic blood loss (D50.0) Active confirmed Problem Kidney stone (46864197) Kidney stones (N20.0) Active confirmed Problem Iron deficiency anemia (40819200) Iron deficiency anemia, unspecified iron deficiency anemia type (D50.9) Active confirmed Vital Signs Heart Rate 79 /min 01/30/2025 Blood pressure diastolic 72 mm Hg 01/30/2025 Height 65.50 in 01/30/2025 Blood pressure systolic 114 mm Hg 01/30/2025 Weight 108.2 lbs 01/30/2025 BMI 17.73 kg/m2 01/30/2025 Encounters Encounter Location Date [facility] [id number] 09/05/2024 Lalo Kimberly Other fatigue R53.83 and Snoring R06.[address] [id number] 01/30/2025 Lalo Kimberly Type 2 diabetes estrellita itus without complication E11.9 ; Hyperlipidemia, unspecified hyperlipidemia E78.5 ; Acquired hypothyroidism E03.9 ; Iron deficiency anemia, unspecified iron deficiency anemia type D50.9 and BMI < 18.5 Z68.1 [facility] [id number] 02/01/2025 Lalo Kimberly [address] [id number] 03/20/2025 Lalo Kimberly Assessments Encounter Date Diagnosis (ICD Code) Assessment [...] Date MEDICARE PART B [address] [address] [place] [address] [id number] AYANNA CROCKER Self - patient is the insured Medical (General) History Medical History History ICD Code Hypothyroidism Hyperlipidemia Type 2 Diabetes, Dx: 04/2013 Low Back Pain Lumbar Degenerative Disc Disease, CT sca n 2017 Iron Deficiency Anemia Surgical History Surgery Date(Month/Year) Laproscopic cholecystectomy 02/2017 Bilateral Cataract Removal 08/2020 Cyst Removal off mid back- Dr. Rodriguez
--- NOTE | 2025-08-31 09:15 | XR_ITS ---
FINAL REPORT CLINICAL HISTORY: postmenopausal bone loss COMPARISON: None FINDINGS: Using L1-4, the bone mineral density of the spine is 0.801 g/cm2, corresponding to T-score of -2.2. Using the left hip, the bone mineral density of the femoral neck is 0.643 g/cm2, corresponding to a T-score of -2.5. Using the right hip, the bone mineral density of the femoral neck is 0.659 g/cm2, corresponding to a T-score of -2.3. NOTE: T-score: Standard deviation compared with peak bone mass of young adult mean. *Following the recommendations of the International Society of Bone densitometry, classification of hip BMD is based on the lower of two T-scores; total hip or femoral neck. IMPRESSION: Diminished bone mineral density of the right hip and lumbar spine, corresponding to osteopenia. Diminished bone mineral density of the left hip corresponding to osteoporosis. Reviewed, Interpreted and Dictated by Edith George MD Transcribed by Tiffanie Gamez Authenticated and [facility]
== END 2025-08-31 23:59 | disposition home or self-care (01) ==
LOC: RAD 08:41
PROVIDERS: PCP Nurse Practitioner Family; Visit Provider Nurse Practitioner Family
DX: M81.0 Age-related osteoporosis without current pathological fracture (principal); Z78.0 Asymptomatic menopausal state; E11.9 Type 2 diabetes mellitus without complications; E03.9 Hypothyroidism, unspecified; E78.5 Hyperlipidemia, unspecified; K21.9 Gastro-esophageal reflux disease without esophagitis; D64.9 Anemia, unspecified; Z13.21 Encounter for screening for nutritional disorder; R53.83 Other fatigue; R35.0 Frequency of micturition; M54.50 Low back pain, unspecified
CPT/HCPCS: 77080